=== PATIENT | male | born 1975 | race Caucasian/White ===

== ENCOUNTER → 2021-03-02 11:44 | Outpatient (CLI) | payer MEDICAID, SELFPAY ==
[2021-03-02 12:49] LABS: Erythrocyte Sedimentation Rate 16 mm/hr (0-20)
[2021-03-02 12:52] LABS: Absolute Lymphocyte Count 2.15 X10^3/uL (0.83-4.51); Basophil% 1.1 % (0-1); Eosinophil# 0.07 X10^3/uL; Eosinophils% 0.8 % (0-5); Hematocrit 46.8 % (40-54); Hemoglobin 15.2 g/dL (13.0-16.5); Lymphocyte # 2.15 X10^3/ul (0.83-4.51); Lymphocyte % 24.1 % (19-41); Mean Corp Hgb Conc 32.5 g/dL (32-36); Mean Corpuscular Hgb 30.2 pg (27.0-32.0); Mean Platelet Vol. 12.5 fl (6.2-12.0); Monocyte# 0.58 X10^3/uL; Monocyte% 6.5 % (0-10); NRBC Flagged by Analyzer 0 % (0-5); Neutrophil # 5.98 X10^3/uL (2.7-7.7); Neutrophil % 67.2 % (47-70); Platelet Count 281 K/mm3 (150-450); RBC Distribution Width CV 13.5 % (11.6-14.6); RBC Distribution Width SD 45.9 fl (35.1-43.9); Red Blood Count 5.03 M/mm3 (4.6-6.2); White Blood Count 8.9 K/mm3 (4.4-11.0)
[2021-03-02 13:17] LABS: Hemoglobin A1c 8.1 % (3.8-5.6)
[2021-03-02 13:18] LABS: ALB/GLOB Ratio 0.9 RATIO (0.9-2.4); AST(SGOT) 24 U/L (15-37); Alanine Aminotransfer ALT/SGPT 33 U/L (16-61); Albumin, Serum 3.6 g/dL (3.2-5.0); Alkaline Phosphatase 126 U/L (45-117); Anion Gap 8 (5-15); BUN 13 mg/dL (7-18); CRP < 2.90 mg/L (0.0-3.0); Calcium,Total 8.9 mg/dL (8.5-10.1); Chloride 107 mmol/L (98-107); Creatinine, Serum 0.93 mg/dL (0.70-1.30); EST Glomerular Filtration Rate 93 mL/min (>60); Est Glom Filt Rate - Afr Amer 113 mL/min (>60); Globulin 3.9 g/dL (2.2-4.2); Glucose 205 mg/dL (74-106); LDH 142 U/L (87-241); Potassium 4.4 mmol/L (3.5-5.1); Protein, Total 7.5 g/dL (6.4-8.2); Sodium Level 141 mmol/L (136-145)
[2021-03-03 13:21] LABS: AFP, Tumor Marker 4.9 ng/mL (0.0-8.3); Carbohydrate AG 19-9 15 U/mL (0-35)
== END ==
PROVIDERS: PCP Nurse Practitioner Family; Referring Provider Internal Medicine Gastroenterology; Visit Provider Internal Medicine Gastroenterology
DX: E11.43 Type 2 diabetes mellitus with diabetic autonomic (poly)neuropathy (principal); K31.84 Gastroparesis; K86.1 Other chronic pancreatitis; Z79.4 Long term (current) use of insulin
CPT/HCPCS: 36415; 80053; 82105; 83036; 83615; 85025; 85652; 86140; 86301

== ENCOUNTER 2021-04-12 09:57 | Inpatient (IN) | payer MEDICAID, SELFPAY ==
[2021-04-12] VITALS (7 sets, daily range): BP systolic 97–134; BP diastolic 53–71; PULSE 47–114; RESP 16–22; TEMP 35.7–37.1; O2SAT 96–98; BMI 23.1
--- NOTE | 2021-04-12 10:24 | US_ITS ---
STUDY: ABDOMINAL ULTRASOUND - RIGHT UPPER QUADRANT REASON FOR VISIT: Male, 46 years old . Chronic pancreatitis. TECHNIQUE: Ultrasound evaluation of the right upper quadrant was performed with real-time and static campbell-scale imaging. TECHNICAL QUALITY: Adequate. COMPARISON: None. FINDINGS: Liver: The liver measures 17.6 cm. There is normal echogenicity of the liver. The bile ducts are within normal limits. There is hepatic color flow. The direction of portal flow is hepatopetal. There is no demonstrated mass lesion. Gallbladder: Normal distended gallbladder. The gallbladder wall measures 1.4 mm. There is a negative sonographic West''s sign. There is no pericholecystic fluid. There are no gallstones. Common Bile Duct (C.B.D.): The common bile duct measures 3.4 mm. Pancreas: Normal size of the head, body and tail of the pancreas. There is normal echogenicity of the pancreas. There is no demonstrated pancreatic mass or cyst. Right Kidney: Normal size of the right kidney. The right kidney measures 11.1 cm x 5.3 cm x 4.8 cm. Normal renal cortex. The right cortex measures 1.2 cm. There is no demonstrated renal mass or cyst. There is no right hydronephrosis. US/Abdomen Limited IMPRESSION: Normal right upper quadrant ultrasound examination. Electronically Signed: Luis Cook MD at 11:52 EST , Service support ,
--- NOTE | 2021-04-12 10:28 | EX.ED.DYSGE1 ---
HPI History of Present Illness Chief Complaint: Abd Pain Informant: patient and parent Onset/Context/Timing Onset: Yesterday Current Severity: Moderate Maximum Severity: Severe Narrative Narrative: Patient presents secondary to increased abdominal pain. He is being treated for chronic pancreatitis. He states his pain increased last night after eating meatloaf. No fever or chills. [facility] Medical History Chronic pancreatitis Depression Diabetes mellitus with insulin therapy Gastroparesis GERD (gastroesophageal reflux disease) Nausea and vomiting Neuropathy Pancreatitis Stroke Tobacco abuse Home Medications insulin aspar prt-insulin aspart 100 unit/mL (70-30) subcutaneous soln 1 sliding scale dose SUBCUT USEASDIRECTD 03/02/21 [History Last Taken Unknown] insulin regular human 100 unit/mL injection solution 1 sliding scale dose SUBCUT USEASDIRECTD 03/02/21 [History Last Taken Unknown] Allergy/AdvReac Type Severity Reaction Status Date / Time bee venom protein (honey bee) Allergy Severe Anaphylaxis Verified 04/12/21 09:59 Surgical History History of appendectomy Social History Smoking Status: Current every day smoker tobacco type: cigarettes ROS ROS ED Constitutional Constitutional ED: Denies chills or fever(s) Eyes Eyes: Denies change in vision ENT ENT ED: Denies sore throat Cardiovascular Cardiovascular: Denies chest pain Respiratory/Chest Respiratory/Chest: Denies cough or dyspnea Gastrointestinal Gastrointestinal: Reports abdominal pain, nausea and vomiting; Denies diarrhea Genitourinary Genitourinary ED: Denies dysuria Musculoskeletal Musculoskeletal: Denies back pain Integumentary Denies rash Neurologic Neurologic: Reports weakness; Denies headache(s) Allergic/Immunologic Allergic/Immunologic ED: Denies urticaria EXAM Physical Exam Const Vital Signs: 04/12/21 09:57 04/12/21 13:22 Temperature 96.3 F L Temperature Source Temporal Pulse Rate 47 L 67 Respiratory Rate 16 18 Blood Pressure 129/66 H 97/59 L Blood Pressure Mean 87 71 Pulse Ox 98 Oxygen Delivery Method Room Air Positive well nourished and well developed General Appearance ED: well developed HEENT Reports normocephalic and head/scalp atraumatic Eyes PERRL and EOMs intact bilaterally Neck supple Chest Wall inspection of chest normal and palpation of chest normal Resp normal respiratory effort and clear to auscultation bilaterally Cardio regular rate and regular rhythm GI Palpation: soft and tender other (Moderate diffuse tenderness palpation. No guarding or rebound.) Back/Spine no CVA tenderness Extremity normal to inspection Neuro oriented x3 and no sensory deficits noted Sensorium / Orientation: alert Motor Exam: strength 5/5 throughout Psych mental status grossly normal Skin no rashes or lesions noted MDM MDM MDM Narrative Medical decision making narrative: Patient initially given morphine and Zofran for pain and nausea. Lab work obtained along with right upper quadrant ultrasound. Lab Data Attestation: I reviewed the patient's lab results. Labs: Laboratory Results - last 24 hr 04/12/21 04/12/21 04/12/21 10:13 10:13 10:13 WBC 8.9 RBC 5.12 Hgb 15.5 Hct 48.2 MCV 94.1 H MCH 30.3 MCHC 32.2 RDW Std Deviation 46.0 H RDW Coeff of Elly 13.2 Plt Count 282 MPV 11.5 Immature Gran % (Auto) 0.300 Neut % (Auto) 84.3 H Lymph % (Auto) 12.0 L [place] % (Auto) 2.0 Eos % (Auto) 0.3 Baso % (Auto) 1.1 H Absolute Neuts (auto) 7.5 Absolute Lymphs (auto) 1.07 Nucleated RBC % 0 Sodium 137 Potassium 4.7 Chloride 103 Carbon Dioxide 27.0 Anion Gap 7 BUN 14 Creatinine 0.97 Estim Creat Clear Calc 111.06 Est GFR (MDRD) Af Amer 107 Est GFR (MDRD) Non-Af 89 BUN/Creatinine Ratio 14.4 Glucose 289 H Calcium 9.3 Phosphorus 2.3 L Magnesium 2.2 Total Bilirubin 0.70 Direct Bilirubin 0.13 AST 17 ALT 25 Alkaline Phosphatase 109 Total Protein 7.5 Albumin 3.8 Globulin 3.7 Lipase 41 L Radiography Diagnostic Testing: Clinical Impression(s) from Imaging Studies Abdomen Ultrasound 04/12/21 10:24 IMPRESSION: Normal right upper quadrant ultrasound examination. Electronically Signed: Luis Cook MD at 11:52 EST , Service support , Abdomen/Pelvis CT 04/12/21 13:24 IMPRESSION: The stomach is fluid distended. Findings suggestive of edematous changes with mucosal thickening of the second portion of the duodenum. Pancreatic atrophy. Distended urinary bladder. Electronically Signed: Luis Cook MD at 15:06 EST , Service support , Treatment and Re-Evaluation Comments:: Patient's lab work unremarkable. Right upper quadrant ultrasound reveals no acute abnormality. I spoke with Dr. Villeda, the patient's ophthalmologist. He did asked that we go ahead and obtain a CT scan of the abdomen and pelvis with contrast. This was performed and signed out to oncoming physician for discussion with Dr. Villeda and final disposition. Discharge Plan Dx/Rx/DC Orders Clinical Impression: Abdominal pain, Chronic pancreatitis, Gastric outlet obstruction, Duodenitis Disposition Disposition: Acute Care Hospital [facility] Discharge Date/Time: 04/12/21 17:32
[2021-04-12 10:41] LABS: Absolute Lymphocyte Count 1.07 X10^3/uL (0.83-4.51); Absolute Neutrophil Count 7.5 X10^3/uL (2.0-7.7); Basophil% 1.1 % (0-1); Eosinophil# 0.03 X10^3/uL; Eosinophils% 0.3 % (0-5); Hematocrit 48.2 % (40-54); Hemoglobin 15.5 g/dL (13.0-16.5); Lymphocyte # 1.07 X10^3/ul (0.83-4.51); Mean Corp Hgb Conc 32.2 g/dL (32-36); Mean Corpuscular Hgb 30.3 pg (27.0-32.0); Mean Corpuscular Volume 94.1 fL (80-94); Mean Platelet Vol. 11.5 fl (6.2-12.0); Monocyte# 0.18 X10^3/uL; NRBC Flagged by Analyzer 0 % (0-5); Neutrophil # 7.49 X10^3/uL (2.7-7.7); Neutrophil % 84.3 % (47-70); Platelet Count 282 K/mm3 (150-450); RBC Distribution Width CV 13.2 % (11.6-14.6); Red Blood Count 5.12 M/mm3 (4.6-6.2); White Blood Count 8.9 K/mm3 (4.4-11.0)
[2021-04-12] MEDS: Ondansetron 4 MG/2 ML Vial IV ×3 (10:46→20:00)
[2021-04-12] MEDS: 0.9% Normal Saline 1,000 ML 1000 ML IV (10:46)
[2021-04-12] MEDS: Morphine 4 MG/ML Syringe IV (10:46)
[2021-04-12 10:51] LABS: AST(SGOT) 17 U/L (15-37); Alanine Aminotransfer ALT/SGPT 25 U/L (16-61); Albumin, Serum 3.8 g/dL (3.2-5.0); Alkaline Phosphatase 109 U/L (45-117); Anion Gap 7 (5-15); BUN 14 mg/dL (7-18); BUN/Creat Ratio 14.4 RATIO (10-20); Bilirubin, Direct 0.13 mg/dL (0.00-0.30); Calcium,Total 9.3 mg/dL (8.5-10.1); Chloride 103 mmol/L (98-107); Creatinine, Serum 0.97 mg/dL (0.70-1.30); EST Glomerular Filtration Rate 89 mL/min (>60); Est Glom Filt Rate - Afr Amer 107 mL/min (>60); Estimated Creatinine Clearance 111.06 ml/min; Globulin 3.7 g/dL (2.2-4.2); Glucose 289 mg/dL (74-106); Lipase 41 U/L (73-393); Potassium 4.7 mmol/L (3.5-5.1); Protein, Total 7.5 g/dL (6.4-8.2); Sodium Level 137 mmol/L (136-145)
[2021-04-12] MEDS: 0.9% Normal Saline 1,000 ML 150 ML IV (13:20)
--- NOTE | 2021-04-12 13:24 | CT_ITS ---
STUDY: CT ABDOMEN AND PELVIS WITH CONTRAST REASON FOR EXAM: Male, 46 years old. Abd pain -- IV PO Contrast. History of pancreatitis. RADIATION DOSAGE (If Supplied By Facility): CTDIvol = ( 9.83 ) mGy, DLP = ( 534.36 ) mGycm TECHNIQUE: Transaxial images were obtained from the dome of the diaphragm to the symphysis pubis without oral contrast. IV 100mL Isovue-370 was administered. Sagittal and coronal images were reconstructed. Individualized dose optimization techniques were used for this CT. COMPARISON: None. FINDINGS: Minimal degree of dependent bibasilar atelectasis. Mild coronary artery calcification. Normal liver. Normal gallbladder and extrahepatic biliary system. Normal spleen. There is diffuse atrophy of the pancreas. Normal bilateral adrenal glands. 2 mm calculus in the midportion of the right kidney. Normal left kidney. Fluid distention of the stomach. There is mucosal thickening and narrowing of the second portion of the duodenum. Normal colon. There are surgical clips in the region of the appendix consistent with a prior appendectomy. Normal abdominal aorta. Normal inferior vena cava. Normal retroperitoneum. There is a distended urinary bladder. Normal abdominal wall. Normal osseous structures. CT/Abdomen/Pelvis WITH Contrast IMPRESSION: The stomach is fluid distended. Findings suggestive of edematous changes with mucosal thickening of the second portion of the duodenum. Pancreatic atrophy. Distended urinary bladder. Electronically Signed: Luis Cook MD at 15:06 EST , Service support ,
--- NOTE | 2021-04-12 15:59 | EDS_ITS ---
HPI HPI - GI History of Present Illness Chief Complaint: Abd Pain Detail of Chief Complaint: Abdominal pain and vomiting Narrative Narrative: Care of patient turned over to me awaiting discussion with scientific publications editor Dr. Villeda. I was asked to discuss findings of CT scan and ultrasound as well as lab work with Dr. Villeda. While awaiting discussion with Dr. Villeda patient had a large emesis once again and continues to complain of si gnificant abdominal discomfort. Dr. Villeda felt patient may have a component of gastric outlet obstruction and recommended NG tube placement and admission to medicine for symptom management and likely endoscopy. Dr. Villeda will consult on the case. Patient has history of chronic pancreatitis. Prior similar symptoms: Yes PFSH PFSH Medical History Chronic pancreatitis Depression Diabetes mellitus with insulin therapy Gastroparesis GERD (gastroesophageal reflux disease) Nausea and vomiting Neuropathy Pancreatitis Stroke Tobacco abuse Home Medications insulin aspar prt-insulin aspart 100 unit/mL (70-30) subcutaneous soln 1 sliding scale dose SUBCUT USEASDIRECTD 03/02/21 [History Last Taken Unknown] insulin regular human 100 unit/mL injection solution 1 sliding scale dose SUBCUT USEASDIRECTD 03/02/21 [History Last Taken Unknown] Allergy/AdvReac Type Severity Reaction Status Date / Time bee venom protein (honey bee) Allergy Severe Anaphylaxis Verified 04/12/21 09:59 Surgical History History of appendectomy Social History Smoking Status: Current every day smoker tobacco type: cigarettes EXAM Physical Exam Const Vital Signs: 04/12/21 09:57 04/12/21 13:22 Temperature 96.3 F L Temperature Source Temporal Pulse Rate 47 L 67 Respiratory Rate 16 18 Blood Pressure 129/66 H 97/59 L Blood Pressure Mean 87 71 Pulse Ox 98 Oxygen Delivery Method Room Air Positive well nourished and well developed General Appearance ED: well developed and NAD HEENT Reports TM's clear and moist mucous membranes normocephalic and atraumatic; Negative for trauma or tenderness Tympanic Membrane ED: Yes TM's clear Eyes PERRL and EOMs intact bilaterally General Eye ED: Negative for pale conjunctiva or scleral icterus Neck no lymphadenopathy, supple and no JVD General: Negative for tenderness Chest Wall inspection of chest normal and palpation of chest normal Chest: Negative for tenderness Resp normal respiratory effort and clear to auscultation bilaterally Effort and Inspection: Negative for respiratory distress or pain with movement Auscultation: Negative for rhonchi, wheezes or diminished lung sounds Cardio regular rate, regular rhythm, S1 normal heart sound, S2 normal heart sound and no murmurs Peripheral Pulses: pulses 2+ throughout GI normal to inspection, nondistended, normoactive bowel sounds, soft to palpation, non-tender and non-distended GI Narrative: Patient with tenderness to the epigastric region and upper abdomen with some guarding. There is no rebound or rigidity. Palpation: tender Back/Spine no CVA tenderness and no thoracic nor lumbar tenderness Extremity normal to inspection General Extremety ED: Negative for edema General Extremity: Negative for edema Neuro oriented x3, CN's II-XII intact bilaterally, no sensory deficits noted and gait normal Sensorium / Orientation: awake, alert, oriented to person, oriented to place and oriented to time Motor Exam: strength 5/5 throughout and strength abnormal Psych mental status grossly normal Skin no rashes or lesions noted and no wounds MDM MDM MDM Narrative Medical decision making narrative: After discussion with Dr. Villeda patient will be admitted to medicine Lab Data Labs: Laboratory Results - last 24 hr 04/12/21 04/12/21 10:13 10:13 WBC 8.9 RBC 5.12 Hgb 15.5 Hct 48.2 MCV 94.1 H MCH 30.3 MCHC 32.2 RDW Std Deviation 46.0 H RDW Coeff of Elly 13.2 Plt Count 282 MPV 11.5 Immature Gran % (Auto) 0.300 Neut % (Auto) 84.3 H Lymph % (Auto) 12.0 L [place] % (Auto) 2.0 Eos % (Auto) 0.3 Baso % (Auto) 1.1 H Absolute Neuts (auto) 7.5 Absolute Lymphs (auto) 1.07 Nucleated RBC % 0 Sodium 137 Potassium 4.7 Chloride 103 Carbon Dioxide 27.0 Anion Gap 7 BUN 14 Creatinine 0.97 Estim Creat Clear Calc 111.06 Est GFR (MDRD) Af Amer 107 Est GFR (MDRD) Non-Af 89 BUN/Creatinine Ratio 14.4 Glucose 289 H Calcium 9.3 Total Bilirubin 0.70 Direct Bilirubin 0.13 AST 17 ALT 25 Alkaline Phosphatase 109 Total Protein 7.5 Albumin 3.8 Globulin 3.7 Lipase 41 L Radiography Diagnostic Testing: Clinical Impression(s) from Imaging Studies Abdomen Ultrasound 04/12/21 10:24 IMPRESSION: Normal right upper quadrant ultrasound examination. Electronically Signed: Luis Cook MD at 11:52 EST , Service support , Abdomen/Pelvis CT 04/12/21 13:24 IMPRESSION: The stomach is fluid distended. Findings suggestive of edematous changes with mucosal thickening of the second portion of the duodenum. Pancreatic atrophy. Distended urinary bladder. Electronically Signed: Luis Cook MD at 15:06 EST , Service support , Discharge Plan Triage Chief Complaint: Abd Pain ED Provider: Ericka Orozco Dx/Rx/DC Orders Clinical Impression: Abdominal pain, Chronic pancreatitis, Gastric outlet obstruction, Duodenitis Prescriptions: No Action insulin asp prt-insulin aspart [Novolog Mix 70-30 U-100 Insuln] 100 unit/mL (70-30) solution 1 sliding scale dose subcut USEASDIRECTD RF: 0 Humulin R Regular U-100 Insuln 100 unit/mL solution 1 sliding scale dose subcut USEASDIRECTD RF: 0 Primary Care Provider: Abhishek Nance NP Referrals: Abhishek Nance NP, [employer] [Primary Care Provider] -
--- NOTE | 2021-04-12 16:14 | NURSING ---
MED SURG JT ABD PAIN, VOMITING, GASTRIC OUTLET OBSTRUCTION
--- NOTE | 2021-04-12 16:15 | NURSING ---
DR WATERS IN ER
--- NOTE | 2021-04-12 16:20 | CASEMGMT ---
RN CM to room to meet with patient for initial transition planning/care coordination assessment. RN NATTY introduced self and role at [facility]. Patient voices understanding and consents to assessment at this time. Patient's mother Katie present at bedside. Patient is alert and oriented, sitting up on ER cart in no apparent distress and answers all questions appropriately. Care providers, pharmacy, and demographics verified/updated at this time. PCP: Abhishek Nance DRILLING ASSISTANT Specialists: Friend- GI Preferred Pharmacy: [facility] Insurance: [employer] Prescription Benefit: yes Living Will/HPOA: Patient denies having a living will or HPOA. LNOK: Mother, Katie Cade Living Arrangements: Patient lives alone in one story house with no steps to enter the home. Patient states independent with ADLs. 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 Smoking/ETOH/Drugs: Current smoker (3 cigarettes/day), denies ETOH use, admits to smoking marijuana daily Transportation: Patient drives self and denies transportation concerns. DME/HHC/SNF: Patient denies having any DME in the home and denies need for DME at this time. Denies previous HHC or SNF stays. Patient has no concerns with going home at time of discharge. CM to follow for any discharge planning/needs. Patient voices no concerns/needs at this time. Advised patient to ask for CM if any questions/concerns/needs arise. Voices understanding. Plan: home
--- NOTE | 2021-04-12 17:06 | HP.PCM.HOS_ITS ---
[facility] - General General Date of Admission: 04/12/21 Chief Complaint: Vomiting with sausage and right upper quadrant abdominal pain HPI Narrative KEENAN AYALA, is a 46 M with history of chronic alcoholic pancreatitis came to ER with abdominal pain mainly over the right side and vomiting after eating sausage. This has been ongoing for last 1 month. Patient seen metal or wood blocker Dr. Villeda on 03/02 and at that time he also had 2 to 3 days of nausea, vomiting abdominal pain after eating sausage. Patient used to have alcohol and substance use which he quit about a year ago. Multiple episodes of acute pancreatitis resulted into chronic pancreatitis. He is still smokes pots. Patient states he gets abdominal pain mainly right upper quadrant, colicky in n ature which last for 4 hours after vomiting. He denies hematemesis melena or hematochezia. He usually gets diarrhea. He has history of type 1 diabetes mellitus and gastroparesis. Vitals, heart rate 67, blood pressure 129/66, no tachypnea. Pulse ox 98% on room air. Labs reviewed. Patient had right upper quadrant sonogram reported normal. Abdominal pelvis CT initially reviewed and shows distended stomach with fluid. Edematous changes with mucosal thickening of second portion of duodenum with pancreatic atrophy raising suspicion of gastric outlet obstruction. ER physician talked to metal or wood blocker Dr. Villeda and is getting admitted for further work-up. [facility] Medical History Chronic pancreatitis Depression Diabetes mellitus with insulin therapy Gastroparesis GERD (gastroesophageal reflux disease) Nausea and vomiting Neuropathy Pancreatitis Stroke Tobacco abuse Home Medications insulin aspar prt-insulin aspart 100 unit/mL (70-30) subcutaneous soln 1 sliding scale dose SUBCUT USEASDIRECTD 03/02/21 [History Last Taken Unknown] insulin regular human 100 unit/mL injection solution 1 sliding scale dose SUBCUT USEASDIRECTD 03/02/21 [History Last Taken Unknown] Allergy/AdvReac Type Severity Reaction Status Date / Time bee venom protein (honey bee) Allergy Severe Anaphylaxis Verified 04/12/21 09:59 Surgical History History of appendectomy Social History Smoking Status: Current every day smoker tobacco type: cigarettes ROS ROS Narrative Constitutional: Reports fatigue and weakness, thin looking gentleman HEENT: Reports systems reviewed and no addt'l complaints, except as documented Respiratory/Chest: Denies chest pain, shortness of breath at rest or with exertion Gastrointestinal: As mentioned in HPI Genitourinary: Denies burning urination or new urinary tract symptoms Musculoskeletal: No joint pain and limited range of motion Neurologic: Denies seizure-like activity skin: No ulcer. No rash Endocrinology: Diabetes mellitus, gastroparesis. Reports systems reviewed and no addt'l complaints, except as documented Hematologic/Lymphatic: Reports systems reviewed and no addt'l complaints, except as documented Rest 14 ROS are negative except as mentioned in HPI Vital Signs Vital Signs Vital Signs: 04/12/21 09:57 04/12/21 13:22 04/12/21 16:36 Temperature 96.3 F L 98.2 F Temperature Source Temporal Temporal Pulse Rate 47 L 67 113 H Respiratory Rate 16 18 22 H Blood Pressure 129/66 H 97/59 L 112/53 L Blood Pressure Mean 87 71 72 Pulse Ox 98 98 Oxygen Delivery Method Room Air Room Air 04/12/21 16:38 Temperature Temperature Source Pulse Rate Respiratory Rate Blood Pressure 112/53 L Blood Pressure Mean 72 Pulse Ox Oxygen Delivery Method Weight Weight: 180 lb Body Mass Index (BMI) 23.1 Physical Exam Narrative General: Alert, Oriented x3, Cooperative, BMI 23.1 kg/m? HEENT: Atraumatic, PERRLA, EOMI, Normocephalic Oral: Oral mucosa dry. No Gingival or Mucosal Lesions/ Ulcerations Neck: Supple, No JVD, Negative Carotid Bruits Lungs: Air entry diminished in bilateral lung bases. No crepitation/rhonchi Cardiovascular: Regular rate, Regular Rhythm, Normal S1, Normal S2, No murmurs Abdomen: Bowel Sounds Present, Soft, Non Tender, Non-Distended : No renal angle tenderness. No suprapubic tenderness. Extremities: No edema, Capillary Refill Less than 3 Seconds Skin: No rashes, No breakdown Musculoskeletal: No Tenderness to Palpation of Joints or Extremities Neurological: Cranial nerves II-XII grossly intact, DTR 2+/4 and Symmetrical, Neuro grossly intact Psych/Mental Status: Normal Affect, Appropriate. Results Lab / Micro Data Result Diagrams: 04/12/21 10:13 04/12/21 10:13 Labs: Laboratory Results - last 24 hr 04/12/21 10:13: WBC 8.9, RBC 5.12, Hgb 15.5, Hct 48.2, MCV 94.1 H, MCH 30.3, MCHC 32.2, RDW Std Deviation 46.0 H, RDW Coeff of Elly 13.2, Plt Count 282, MPV 11.5, Immature Gran % (Auto) 0.300, Neut % (Auto) 84.3 H, Lymph % (Auto) 12.0 L, [place] % (Auto) 2.0, Eos % (Auto) 0.3, Baso % (Auto) 1.1 H, Absolute Neuts (auto) 7.5, Absolute Lymphs (auto) 1.07, Nucleated RBC % 0 04/12/21 10:13: Sodium 137, Potassium 4.7, Chloride 103, Carbon Dioxide 27.0, Anion Gap 7, BUN 14, Creatinine 0.97, Estim Creat Clear Calc 111.06, Est GFR (MDRD) Af Amer 107, Est GFR (MDRD) Non-Af 89, BUN/Creatinine Ratio 14.4, Glucose 289 H, Calcium 9.3, Total Bilirubin 0.70, Direct Bilirubin 0.13, AST 17, ALT 25, Alkaline Phosphatase 109, Total Protein 7.5, Albumin 3.8, Globulin 3.7, Lipase 41 L Radiology Impression Abdomen Ultrasound 04/12/21 10:24 IMPRESSION: Normal right upper quadrant ultrasound examination. Electronically Signed: Luis Cook MD at 11:52 EST , Service support , Abdomen/Pelvis CT 04/12/21 13:24 IMPRESSION: The stomach is fluid distended. Findings suggestive of edematous changes with mucosal thickening of the second portion of the duodenum. Pancreatic atrophy. Distended urinary bladder. Electronically Signed: Luis Cook MD at 15:06 EST , Service support , Assessment & Plan Assessment/Plan (1) Gastric outlet obstruction: PLAN: 1. Gastroparesis and gastric outlet obstruction: Gastric outlet progression probably from chronic pancreatitis coupled with gastroparesis. Other possible possibilities are PUD. Patient is being admitted on MedSur floor. GI has been consulted. On clear liquid diet. Patient does not have dysphagia or vomiting with liquid diet or soft diet. He states it is mainly with sausage not even with beef. Further plan of management as per GI recommendation EGD. On Protonix 40 mg IV twice daily. No recent GI bleed. 2. type 1 diabetes mellitus with gastroparesis with hyperglycemia, uncontrolled: Accu-Chek before meals and at bedtime and cover with low sliding scale. Glucose is 289. 3. Hypophosphatemia: Phosphorus is being replaced. Serum magnesium and potassium are normal. 4. Chronic alcoholic pancreatitis with history of alcohol use and substance use in the past. Currently patient is pot/marijuana. He also smokes cigarettes a pack per day since teenage. Advised to quit. DVT prophylaxis, low risk. Charges/Coding Visit Charges Inpatient E&M: 74303 Init Hosp L3
[2021-04-12 17:51] LABS: Magnesium 2.2 mg/dL (1.6-2.6); Phosphorus 2.3 mg/dL (2.5-4.9)
[2021-04-12] MEDS: Lactated Ringers 1,000 ML 75 ML IV (18:15)
[2021-04-12 18:16] LABS: Bedside Glucose 270 mg/dL (70-110)
--- NOTE | 2021-04-12 18:27 | EX.PCM.CON.G ---
HPI Consult Data Date of Consult: 04/12/21 HPI Narrative HPI Narrative: KEENAN AYALA, is a 46 M who presents 46 M who presented to my office today for evaluation of nausea vomiting. He has a 40-year history of type 1 diabetes. He says he only suffers from a mononeuropathy. He denies any nephropathy or retinopathy. He also has a diagnosis of gastroparesis thought to be secondary to diabetes. He does not know what his last hemoglobin A1c. He does not have any frequent urination. At this time he is not having any problems with diarrhea. He was previously diagnosed with with acute pancreatitis. He thinks he has a diagnosis of chronic pancreatitis but he does not now. He was in [place] where he had multiple episodes of pancreatitis. His last episode was in [place]. He did not get admitted at that time. He has been admitted in the past. 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 He has been having recurrent pancreatitis for the last two years as per the patient. This is caused him to lose over 40 pounds. The last time he had symptoms was a couple of weeks ago which included emesis, diarrhea with some blood after 2-3 days of symptoms, nausea, bloating, abdominal pain particularly in the right side, decreased appetite. Symptoms last 4-5 days, sometimes liquid diet will resolve symptoms and sometimes he needs to go to ED for treatment. Initially thought is was alcohol related then diet related. Was previously drinking one alcoholic drink a day but has stopped drinking a year ago. He does use marijuana daily with varying amounts daily and has decreased lately. Gets about eight episodes a year. Type I diabetic. He has had a gastric emptying study due to gastroparesis related to diabetes. Study showed that he has delayed emptying. States he has not been having issues since better management of DM I. Denies history of EGD and colonoscopy. He came into the hospital today with worsening abdominal pain. He was eating normally when he developed acute onset of midepigastric pain. He had multiple episodes of nausea vomiting. In the emergency room he got a CT scan of the abdomen and pelvis and it showed thickening in the duodenum with a lot of food and liquid contents in his stomach. An NG tube was attempted to be placed into his stomach, but he vomited up a lot of the food that was in the stomach. His blood sugar in the ED was 270. PFSH Medical History Chronic pancreatitis Depression Diabetes mellitus with insulin therapy Gastroparesis GERD (gastroesophageal reflux disease) Nausea and vomiting Neuropathy Pancreatitis Stroke Tobacco abuse Home Medications insulin aspar prt-insulin aspart 100 unit/mL (70-30) subcutaneous soln 1 sliding scale dose SUBCUT USEASDIRECTD 03/02/21 [History Last Taken Unknown] insulin regular human 100 unit/mL injection solution 1 sliding scale dose SUBCUT USEASDIRECTD 03/02/21 [History Last Taken Unknown] Allergy/AdvReac Type Severity Reaction Status Date / Time bee venom protein (honey bee) Allergy Severe Anaphylaxis Verified 04/12/21 09:59 Surgical History History of appendectomy Social History Smoking Status: Current every day smoker tobacco type: cigarettes ROS Review of Systems ROS Unobtainable: other Constitutional Constitutional: Denies fatigue, fever(s), poor appetite, weight gain or weight loss ENT HEENT: Denies mouth lesions Cardiovascular Cardiovascular: Denies abdominal bloating, abdominal edema or abdominal pain Respiratory/Chest Respiratory/Chest: Denies change in mental status, change in phlegm color, chest congestion or chest tightness Gastrointestinal Gastrointestinal: Denies belching, bloating, change in bowel habits, change in stool character, chewing difficulty, coffee ground emesis, constipation, cramping, diarrhea, dyspepsia, dysphagia, early satiety, excessive flatus, fecal incontinence, heartburn, hematemesis, hematochezia, hemorrhoids, loose stools, melena, nausea, odynophagia, rectal bleeding, tenesmus, vomiting or weight changes Genitourinary Genitourinary: Denies abdominal discomfort, burning urination or itching Musculoskeletal Musculoskeletal: Reports as per HPI; Denies muscle weakness or myalgias Integumentary Integumentary: Denies jaundice Neurologic Neurologic: Denies lack of coordination or weakness Psychiatric Psychiatric: Denies confusion, depression, memory loss, mood swings, paranoia or suicidal ideation Endocrine Endocrinology: Denies systems reviewed and no addt'l complaints, except as documented Hematologic/Lymphatic Hematologic/Lymphatic: Denies anemia, easy bleeding, easy bruising or lymphadenopathy Allergic/Immunologic Allergic/Immunologic: Denies systems reviewed and no addt'l complaints, except as documented Physical Exam Const alert General Appearance: cooperative Orientation / Consciousness: oriented to person HEENT hearing grossly normal bilaterally Head and Scalp: normal to inspection Face and Sinus: face symmetric Nose: external nose normal Mouth: oral and palatal mucosa normal Eyes conjunctivae normal General Eye: normal appearance of both eyes Neck full ROM General: normal visual inspection Lymph Lymphatic: no lymphadenopathy noted Chest inspection of chest normal and palpation of chest normal Chest: symmetrical chest wall rise Resp normal respiratory effort Effort and Inspection: able to speak in complete sentences Cardio regular rate GI non-distended Percussion: normal to percussion Rectal Exam: deferred Neuro Speech: speech normal Gait (Neuro): normal gait Lab / Micro Data Result Diagrams: 04/12/21 10:13 04/12/21 10:13 Labs: Laboratory Results - last 24 hr 04/12/21 10:13: WBC 8.9, RBC 5.12, Hgb 15.5, Hct 48.2, MCV 94.1 H, MCH 30.3, MCHC 32.2, RDW Std Deviation 46.0 H, RDW Coeff of Elly 13.2, Plt Count 282, MPV 11.5, Immature Gran % (Auto) 0.300, Neut % (Auto) 84.3 H, Lymph % (Auto) 12.0 L, [place] % (Auto) 2.0, Eos % (Auto) 0.3, Baso % (Auto) 1.1 H, Absolute Neuts (auto) 7.5, Absolute Lymphs (auto) 1.07, Nucleated RBC % 0 04/12/21 10:13: Sodium 137, Potassium 4.7, Chloride 103, Carbon Dioxide 27.0, Anion Gap 7, BUN 14, Creatinine 0.97, Estim Creat Clear Calc 111.06, Est GFR (MDRD) Af Amer 107, Est GFR (MDRD) Non-Af 89, BUN/Creatinine Ratio 14.4, Glucose 289 H, Calcium 9.3, Total Bilirubin 0.70, Direct Bilirubin 0.13, AST 17, ALT 25, Alkaline Phosphatase 109, Total Protein 7.5, Albumin 3.8, Globulin 3.7, Lipase 41 L 04/12/21 10:13: Phosphorus 2.3 L, Magnesium 2.2 04/12/21 17:47: POC Glucose 270 H Radiology Impression Abdomen Ultrasound 04/12/21 10:24 IMPRESSION: Normal right upper quadrant ultrasound examination. Electronically Signed: Luis Cook MD at 11:52 EST , Service support , Abdomen/Pelvis CT 04/12/21 13:24 IMPRESSION: The stomach is fluid distended. Findings suggestive of edematous changes with mucosal thickening of the second portion of the duodenum. Pancreatic atrophy. Distended urinary bladder. Electronically Signed: Luis Cook MD at 15:06 EST , Service support , Assessment & Plan Assessment/Plan (1) Gastric outlet obstruction: PLAN: Gastric outlet obstruction possibly secondary to duodenitis. The differential diagnosis would include pyloric stenosis, stricture of the first portion of the duodenum secondary to H. pylori or chronic stasis. He will undergo an upper endoscopy to evaluate his upper GI tract. He was explained alternatives, risk, benefits including outstanding bleeding, infection, sepsis, perforation, need for emergent and . He will have an ASA of 1. (2) Chronic pancreatitis: PLAN: It is not known if he truly has a history of chronic pancreatitis or acute recurrent pancreatitis. His CT scan did not show any signs of calcification in the pancreas. He will need an MRI and possible endoscopic ultrasound. (3) Duodenitis: PLAN: For his duodenitis we will put him on a PPI drip, azithromycin and Reglan therapy. Hopefully he will not have any contents in his GI tract tomorrow morning we perform upper endoscopy Charges/Coding Visit Charges Inpatient E&M: 64745 Init Hosp L3
[2021-04-12] MEDS: Insulin Lispro 100 UNIT/ML INSULN.PEN SC (20:10)
[2021-04-12] MEDS: Na Biphos/Potassium Phosphate PACKET 1 PACKET PO (21:22)
[2021-04-12 21:55] LABS: Bedside Glucose 374 mg/dL (70-110)
[2021-04-13] MEDS: Mag Hydrox/Al Hydrox/Simeth 30 ML UDC PO (00:02)
[2021-04-13 00:17] LABS: Troponin-I HS 6 pg/mL (3.0-78.0)
--- NOTE | 2021-04-13 01:32 | EKG12_ITS ---
Test Reason : CP Blood Pressure : / mmHG Vent. Rate : 110 BPM Atrial Rate : 110 BPM P-R Int : 146 ms QRS Dur : 110 ms QT Int : 332 ms P-R-T Axes : 085 108 062 degrees QTc Int : 449 ms Sinus tachycardia Otherwise normal ECG Confirmed by DIMITRY FLORES, NENO ([id number]), pictures editor LUKE VALLADARES ([id number]) on 04/15/2021 9:19:27 AM Referred By: PC Confirmed By:NENO MORAES MD
[2021-04-13 02:19] LABS: Absolute Lymphocyte Count 0.89 X10^3/uL (0.83-4.51); Absolute Neutrophil Count 15.8 X10^3/uL (2.0-7.7); Basophil# 0.05 X10^3/uL; Basophil% 0.3 % (0-1); Hematocrit 42.8 % (40-54); Hemoglobin 13.9 g/dL (13.0-16.5); Lymphocyte # 0.89 X10^3/ul (0.83-4.51); Mean Corp Hgb Conc 32.5 g/dL (32-36); Mean Corpuscular Hgb 30.4 pg (27.0-32.0); Mean Corpuscular Volume 93.7 fL (80-94); Mean Platelet Vol. 11.1 fl (6.2-12.0); Monocyte# 1.05 X10^3/uL; Monocyte% 5.9 % (0-10); NRBC Flagged by Analyzer 0 % (0-5); Neutrophil # 15.79 X10^3/uL (2.7-7.7); Neutrophil % 88.1 % (47-70); Platelet Count 277 K/mm3 (150-450); RBC Distribution Width CV 13.6 % (11.6-14.6); RBC Distribution Width SD 46.7 fl (35.1-43.9); Red Blood Count 4.57 M/mm3 (4.6-6.2); White Blood Count 17.9 K/mm3 (4.4-11.0)
[2021-04-13 03:07] LABS: Troponin-I HS 9 pg/mL (3.0-78.0)
[2021-04-13 03:09] LABS: ALB/GLOB Ratio 1.1 RATIO (0.9-2.4); AST(SGOT) 9 U/L (15-37); Alanine Aminotransfer ALT/SGPT 21 U/L (16-61); Albumin, Serum 3.5 g/dL (3.2-5.0); Alkaline Phosphatase 104 U/L (45-117); Anion Gap 16 (5-15); BUN 25 mg/dL (7-18); BUN/Creat Ratio 21.4 RATIO (10-20); Calcium,Total 8.9 mg/dL (8.5-10.1); Chloride 102 mmol/L (98-107); Creatinine, Serum 1.17 mg/dL (0.70-1.30); EST Glomerular Filtration Rate 72 mL/min (>60); Est Glom Filt Rate - Afr Amer 87 mL/min (>60); Estimated Creatinine Clearance 92.08 ml/min; Globulin 3.3 g/dL (2.2-4.2); Glucose 430 mg/dL (74-106); Protein, Total 6.8 g/dL (6.4-8.2); Sodium Level 136 mmol/L (136-145)
[2021-04-13] MEDS: Insulin Lispro 100 UNIT/ML INSULN.PEN SC ×2 (05:54→12:22)
[2021-04-13 05:59] VITALS: BP 124/71; PULSE 95; RESP 18; TEMP 36.9; O2SAT 96
[2021-04-13 06:00] LABS: Bedside Glucose 420 mg/dL (70-110)
[2021-04-13 07:02] LABS: Troponin-I HS 13 pg/mL (3.0-78.0)
[2021-04-13 07:35] VITALS: O2SAT 93
[2021-04-13 08:59] VITALS: BP 113/52; PULSE 104; RESP 16; TEMP 36.8; O2SAT 97
[2021-04-13 09:25] LABS: Bedside Glucose 471 mg/dL (70-110)
--- NOTE | 2021-04-13 09:25 | NURSING ---
Addendum entered by Deborah Riojas 04/13/21 09:35: DR DOWNING CALLED W/NEW ORDERS, SEE MAR Original Note: PT C/O CP AND SOB. VSS, HR 105 AND REGULAR. POX 95% ON RA. BLOOD SUGAR 471. TEXT SENT TO DR DOWNING. LAB BACK UP ORDERED
[2021-04-13 09:49] LABS: Hemoglobin A1c 6.8 % (3.8-5.6)
--- NOTE | 2021-04-13 09:59 | NURSING ---
THIS NURSE CALLED INPATIENT PHARMACY AT 0945 REQUESTING INSULINS TO BE VERIFIED
[2021-04-13] MEDS: Insulin NPH Human 100 UNITS/ML PEN 15 UNITS SC (10:22)
[2021-04-13] MEDS: Insulin Lispro 100 UNIT/ML INSULN.PEN 10 UNIT SC (10:23)
[2021-04-13 10:30] LABS: Bedside Glucose 490 mg/dL (70-110)
[2021-04-13 10:49] LABS: Glucose 516 mg/dL (74-106)
[2021-04-13] MEDS: 0.9% Normal Saline 1,000 ML 150 ML IV (11:01)
[2021-04-13 11:21] LABS: Bedside Glucose 499 mg/dL (70-110)
[2021-04-13 11:40] VITALS: BP 105/62; PULSE 87; RESP 16; TEMP 36.5; O2SAT 99
[2021-04-13 11:57] LABS: Bacteria 0 SEEN /hpf (None Seen); Mucous, Urine 0 SEEN /hpf (<or=2+); Red Blood Cells-Urine 0 SEEN /hpf (0-5); Squamous Epithelial Cells - UA 0 SEEN /hpf (0-5); White Blood Cells 0 SEEN /hpf (0-5)
[2021-04-13 12:04] LABS: Color, Urine Yellow (Yellow); Glucose, Dipstick 1000 mg/dl (Normal); Leukocyte Esterase-Dipstick Negative /ul (Negative); Nitrite-Dipstick Negative (Negative); Occult Blood-Urine Negative /ul (Negative); Protein-Dipstick Negative (Negative); Urine Bilirubin Dipstick Negative (Negative); Urine Clarity Clear (Clear); Urine Urobilinogen Normal (Normal)
[2021-04-13 12:11] LABS: Ketone-Dipstick 150 mg/dl (Negative)
[2021-04-13 12:30] LABS: Bedside Glucose 364 mg/dL (70-110)
--- NOTE | 2021-04-13 12:34 | PCM.PN.HOSP ---
Subjective Subjective Hurts all over in his chest and abdomen. Has not having abdominal cramps. Feels similar to when he develops DKA. Has been evaluated for pancreatitis in [place] as well as [place]. Stated that he was seen at the [facility]. Objective Data Objective Data Vital Signs: Vital Signs Temp Pulse Resp BP Pulse Ox 36.5 C L 87 16 105/62 99 04/13/21 11:40 04/13/21 11:40 04/13/21 11:40 04/13/21 11:40 04/13/21 11:40 Oxygen Delivery Method Room Air Weight: 74.2 kg Body Mass Index (BMI) 23.1 Intake & Output: Intake and Output for Last 24 Hours 04/11/21 04/12/21 04/13/21 23:59 23:59 23:59 Intake Total 2259.33 / 2259.33 1090 / 1090 Balance 2259.33 / 2259.33 1090 / 1090 Medical Nutrition Assessment Dietitian: Malnutrition Criteria Met Start: 04/13/21 10:54 Freq: Status: Active Protocol: Document 04/13/21 10:54 AG (Rec: 04/13/21 10:54 AG [id number]) Nutrition Malnutrition Evidence of Malnutrition Exists Yes Malnutrition (severe): Acute Illness/Injury Evidenced By Suboptimal Energy Intake ( Severe),Weight Loss (Severe) Clinical Problem Acute Disease or Injury Related Malnutrition Etiology severe, acute malnutrition r/t GI dysfunction Signs/Symptoms as evidenced by unintentional wt loss of 16.4#/9% x 2 months , estimated PO intake meeting <75% of estimated energy needs x 2 months d/t nausea, emesis , abd pain, and diarrhea Status Active Problem Recommendation Dietitian Recommendations/Changes recommend advance diet as tolerated to CHO controlled, fat restricted; ensure clear 120mL 4x/day w/ medpass when PO diet is advanced. Lab / Micro Data Result Diagrams: 04/13/21 02:13 04/13/21 10:15 Labs: Laboratory Results - last 24 hr 04/12/21 10:13: Phosphorus 2.3 L, Magnesium 2.2 04/12/21 17:47: POC Glucose 270 H 04/12/21 20:06: POC Glucose 374 H 04/12/21 23:50: Troponin I High Sens 6 04/13/21 02:13: WBC 17.9 H, RBC 4.57 L, Hgb 13.9, Hct 42.8, MCV 93.7, MCH 30.4, MCHC 32.5, RDW Std Deviation 46.7 H, RDW Coeff of Elly 13.6, Plt Count 277, MPV 11.1, Immature Gran % (Auto) 0.700, Neut % (Auto) 88.1 H, Lymph % (Auto) 5.0 L, [place] % (Auto) 5.9, Eos % (Auto) 0.0, Baso % (Auto) 0.3, Absolute Neuts (auto) 15.8 H, Absolute Lymphs (auto) 0.89, Nucleated RBC % 0 04/13/21 02:13: Sodium 136, Potassium 5.0, Chloride 102, Carbon Dioxide 18.0 L, Anion Gap 16 H, BUN 25 H, Creatinine 1.17, Estim Creat Clear Calc 92.08, Est GFR (MDRD) Af Amer 87, Est GFR (MDRD) Non-Af 72, BUN/Creatinine Ratio 21.4 H, Glucose 430 H, Calcium 8.9, Total Bilirubin 0.80, AST 9 L, ALT 21, Alkaline Phosphatase 104, Total Protein 6.8, Albumin 3.5, Globulin 3.3, Albumin/Globulin Ratio 1.1 04/13/21 02:13: Troponin I High Sens 9 04/13/21 02:13: Hemoglobin A1c 6.8 H 04/13/21 05:52: POC Glucose 420 H 04/13/21 06:23: Troponin I High Sens 13 04/13/21 09:19: POC Glucose 471 H* 04/13/21 10:15: Glucose 516 H* 04/13/21 10:21: POC Glucose 490 H* 04/13/21 11:11: POC Glucose 499 H* 04/13/21 11:45: Urine Color Yellow, Urine Clarity Clear, Urine pH 5.0, Ur Specific [place] 1.020, Urine Protein Negative, Urine Glucose (UA) 1000 H, Urine Ketones 150 A*, Urine Occult Blood Negative, Urine Nitrite Negative, Urine Bilirubin Negative, Urine Urobilinogen Normal, Ur Leukocyte Esterase Negative, Urine RBC 0 SEEN, Urine WBC 0 SEEN, Ur Squamous Epith Cells 0 SEEN, Urine Bacteria 0 SEEN, Urine Mucus 0 SEEN 04/13/21 12:21: POC Glucose 364 H Micro: Microbiology 04/13/21 07:30 Nasal Secretion SARS-CoV-2 Antigen (Rapid) - Final Radiography Diagnostic Testing: Radiology Impression Abdomen/Pelvis CT 04/12/21 13:24 IMPRESSION: The stomach is fluid distended. Findings suggestive of edematous changes with mucosal thickening of the second portion of the duodenum. Pancreatic atrophy. Distended urinary bladder. Electronically Signed: Luis Cook MD at 15:06 EST , Service support , Physical Exam Const alert HEENT head/scalp atraumatic Head and Scalp: normocephalic Eyes Eyes Narrative: no icterus Resp normal respiratory effort, no retractions, no use of accessory muscles and clear to auscultation bilaterally Cardio regular rate, regular rhythm, S1 normal heart sound and S2 normal heart sound GI normal to inspection, nondistended, normoactive bowel sounds, soft to palpation and non-distended GI Narrative: pain out of proportion to exam. Extremity normal to inspection Psych Mood & Affect: anxious Assessment & Plan Assessment/Plan (1) Abdominal pain: QUALIFIERS: Abdominal location: generalized Qualified Code(s): R10.84 - Generalized abdominal pain (2) Gastric outlet obstruction: (3) Duodenitis: (4) Chest pain: QUALIFIERS: Chest pain type: unspecified Qualified Code(s): R07.9 - Chest pain, unspecified (5) Diabetes mellitus with insulin therapy: PLAN: 1. gastric outlet obstruction probably 2/2 duodenitis EGD today on pantoprazole gtt 2. DKA +AG and ketones in urine DM1 NPO. insulin gtt 3. Chest pain atypical trops negative 4. chronic pancreatitis no evidence of pancreatitis on CT, though atrophy noted check records from [facility] [place] where he has been evaluated before 5. VTE proph: LMWH Charges/Coding Visit Charges Inpatient E&M: 35700 Subs Hosp L3
--- NOTE | 2021-04-13 12:48 | NURSING ---
URINE KETONES 150, ACETONE LEVEL STILL PENDING, DR DOWNING AWARE, TRANSFERRING PT TO ICU
[2021-04-13 13:02] LABS: Magnesium 2.9 mg/dL (1.6-2.6)
--- NOTE | 2021-04-13 14:30 | NURSING ---
Pt verbalizing wishes to leave AMA. Pt encouraged to stay as he is awaiting transfer to ICU for DKA, discussed risks of leaving and encouraged to stay, but pt persistent on leaving. Pt states, I've been diabetic since I was 14, I've been in DKA many times and managed myself. Dr. Santamaria notified of pt's wishes to leave AMA. Dr. Santamaria at bedside to discuss with pt. Pt signs AMA form, copy placed on chart. Pt's mother at bedside, willing to take pt home.
--- NOTE | 2021-04-13 14:37 | PCM.DC ---
Discharge Instructions Diet Discharge Diet: 2000 Calorie Control Diet Dressing / Incision Call your doctor if you observe: - (uncontrolled blood sugar. worsening abdominal pain. intractable nausea and vomiting. ) Follow Up Care Test Results: Test results from this visit will be discussed in further detail at your follow-up appointment, if applicable. Discharge Plan Admission Admit Date/Time: 04/12/21 16:09 Primary Reason for Your Visit: gastric outlet obstruction. Attending Provider: Chandan Santamaria Primary Care Provider: Abhishek Nance NP Discharge Orders/Prescriptions Prescriptions: New omeprazole 20 mg capsule,delayed release(DR/EC) 20 mg PO BID Qty: 60 RF: 0 Continued insulin asp prt-insulin aspart [Novolog Mix 70-30 U-100 Insuln] 100 unit/mL (70-30) solution 25 unit subcut BID RF: 0 Humulin R Regular U-100 Insuln 100 unit/mL solution 1 sliding scale dose subcut USEASDIRECTD RF: 0 Referrals / Follow Up: Segundo Villeda DO [STAFF PHYSICIAN] - Within 2 Weeks Abhishek Nance NP, [facility] [facility] [Primary Care Provider] - Within 2 Weeks Disposition Disposition (needs filled in before D/C Order can be placed): Against Medical Advice
--- NOTE | 2021-04-13 14:41 | PCM.DC.SUM ---
Providers Date of Admission: 04/12/21 Primary Care Physician: BERLIN Lyon Consultations 04/12/21 17:50 Consult: Gastroenterology Routine Consulting Provider: Narciso Gastroenterology Reason for Consult: Gastric outlet obstruciton, chr pancreatitis EMERGENT Consult: No MD Notified: Yes Date Notified: 04/12/21 Time Notified: 17:04 Method of Notification: Text Reason For Visit: CHRONIC PANCREATITIS, GASTROPARESIS Diagnosis Discharge Diagnosis (1) Abdominal pain: Status: Acute Code(s): R10.9 - Unspecified abdominal pain Qualifiers: Abdominal location: generalized Qualified Code(s): R10.84 - Generalized abdominal pain (2) Gastric outlet obstruction: Status: Acute Code(s): K31.1 - Adult hypertrophic pyloric stenosis (3) Duodenitis: Status: Acute Code(s): K29.80 - Duodenitis without bleeding (4) Chest pain: Status: Acute Code(s): R07.9 - Chest pain, unspecified Qualifiers: Chest pain type: unspecified Qualified Code(s): R07.9 - Chest pain, unspecified (5) Diabetes mellitus with insulin therapy: Status: Acute Code(s): E11.9 - Type 2 diabetes mellitus without complications; Z79.4 - detention (current) use of insulin (6) DKA (diabetic ketoacidoses): Status: Acute Code(s): E11.10 - Type 2 diabetes mellitus with ketoacidosis without coma Medications at Discharge Home Medications insulin aspar prt-insulin aspart 100 unit/mL (70-30) subcutaneous soln 25 unit SUBCUT BID 03/02/21 insulin regular human 100 unit/mL injection solution 1 sliding scale dose SUBCUT USEASDIRECTD 03/02/21 omeprazole 20 mg PO BID #60 cap 04/13/21 Hospital Course Summary of Care Provided Minutes Spent on Discharge: 35 Hospital Course: 46-year-old male presents from [employer] office with abdominal pain and weight loss. Patient concerning for gastric outlet obstruction and duodenitis and patient was seen by GI. Plan is for endoscopy. Patient is type I diabetic and then started complaining of chest and worsening abdominal pain which she stated felt like when he would be in DKA. Patient had positive ketones on urinalysis as well as positive anion gap concerning of which for diabetic ketoacidosis and the plan was for the patient be transferred to the ICU to initiate insulin drip protocols. Patient blood sugars have improved and 300 and patient is overall feeling better of note, patient's mother is present in his room. Patient is upset because he did not get his insulin last night and has not had his endoscopy yet. 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 Explained the risks of worsening DKA fever to go home now or potential cephalopathy and worsening abdominal pain as his work-up is incomplete at this time. He reports understanding and accepts the risks. Patient's mother was at bedside as well as the patient's bedside nurse. Patient is recommended to continue with PPI therapy twice daily as he was receiving in the hospital for this duodenitis. Medical Records Data Medical Nutrition Assessment Dietitian: Malnutrition Criteria Met Start: 04/13/21 10:54 Freq: Status: Active Protocol: Document 04/13/21 10:54 (Rec: 04/13/21 10:54 [id number]) Nutrition Malnutrition Evidence of Malnutrition Exists Yes Malnutrition (severe): Acute Illness/Injury Evidenced By Suboptimal Energy Intake ( Severe),Weight Loss (Severe) Clinical Problem Acute Disease or Injury Related Malnutrition Etiology severe, acute malnutrition r/t GI dysfunction Signs/Symptoms as evidenced by unintentional wt loss of 16.4#/9% x 2 months , estimated PO intake meeting <75% of estimated energy needs x 2 months d/t nausea, emesis , abd pain, and diarrhea Status Active Problem Recommendation Dietitian Recommendations/Changes recommend advance diet as tolerated to CHO controlled, fat restricted; ensure clear 120mL 4x/day w/ medpass when PO diet is advanced. Weight / BMI Weight Weight: 74.2 kg Body Mass Index (BMI) 23.1 ABG / Lab / Microbiology Data Result Diagrams: 04/13/21 02:13 04/13/21 10:15 Laboratory: Laboratory Results - last 24 hr 04/12/21 10:13: Phosphorus 2.3 L, Magnesium 2.2 04/12/21 17:47: POC Glucose 270 H 04/12/21 20:06: POC Glucose 374 H 04/12/21 23:50: Troponin I High Sens 6 04/13/21 02:13: WBC 17.9 H, RBC 4.57 L, Hgb 13.9, Hct 42.8, MCV 93.7, MCH 30.4, MCHC 32.5, RDW Std Deviation 46.7 H, RDW Coeff of Elly 13.6, Plt Count 277, MPV 11.1, Immature Gran % (Auto) 0.700, Neut % (Auto) 88.1 H, Lymph % (Auto) 5.0 L, [place] % (Auto) 5.9, Eos % (Auto) 0.0, Baso % (Auto) 0.3, Absolute Neuts (auto) 15.8 H, Absolute Lymphs (auto) 0.89, Nucleated RBC % 0 04/13/21 02:13: Sodium 136, Potassium 5.0, Chloride 102, Carbon Dioxide 18.0 L, Anion Gap 16 H, BUN 25 H, Creatinine 1.17, Estim Creat Clear Calc 92.08, Est GFR (MDRD) Af Amer 87, Est GFR (MDRD) Non-Af 72, BUN/Creatinine Ratio 21.4 H, Glucose 430 H, Calcium 8.9, Total Bilirubin 0.80, AST 9 L, ALT 21, Alkaline Phosphatase 104, Total Protein 6.8, Albumin 3.5, Globulin 3.3, Albumin/Globulin Ratio 1.1 04/13/21 02:13: Troponin I High Sens 9 04/13/21 02:13: Hemoglobin A1c 6.8 H 04/13/21 05:52: POC Glucose 420 H 04/13/21 06:23: Troponin I High Sens 13 04/13/21 09:19: POC Glucose 471 H* 04/13/21 10:15: Glucose 516 H* 04/13/21 10:15: Magnesium 2.9 H 04/13/21 10:21: POC Glucose 490 H* 04/13/21 11:08: Acetone Level MODERATE H 04/13/21 11:11: POC Glucose 499 H* 04/13/21 11:45: Urine Color Yellow, Urine Clarity Clear, Urine pH 5.0, Ur Specific [place] 1.020, Urine Protein Negative, Urine Glucose (UA) 1000 H, Urine Ketones 150 A*, Urine Occult Blood Negative, Urine Nitrite Negative, Urine Bilirubin Negative, Urine Urobilinogen Normal, Ur Leukocyte Esterase Negative, Urine RBC 0 SEEN, Urine WBC 0 SEEN, Ur Squamous Epith Cells 0 SEEN, Urine Bacteria 0 SEEN, Urine Mucus 0 SEEN 04/13/21 12:21: POC Glucose 364 H Microbiology: Microbiology 04/13/21 07:30 Nasal Secretion SARS-CoV-2 Antigen (Rapid) - Final Radiography Diagnostic Testing: Radiology Impression Abdomen/Pelvis CT 04/12/21 13:24 IMPRESSION: The stomach is fluid distended. Findings suggestive of edematous changes with mucosal thickening of the second portion of the duodenum. Pancreatic atrophy. Distended urinary bladder. Electronically Signed: Luis Cook MD at 15:06 EST , Service support , D/C Instructions Discharge Diet: 2000 Calorie Control Diet Call your doctor if you observe: - (uncontrolled blood sugar. worsening abdominal pain. intractable nausea and vomiting. ) Meaningful Use Info Meaningful Use Diagnoses (Choose all that apply): None applicable Discharge Plan Admission Admit Date/Time: 04/12/21 16:09 Primary Reason for Your Visit: gastric outlet obstruction. Attending Provider: Chandan Santamaria Primary Care Provider: Abhishek Nance NP Discharge Orders/Prescriptions Prescriptions: New omeprazole 20 mg capsule,delayed release(DR/EC) 20 mg PO BID Qty: 60 RF: 0 Continued insulin asp prt-insulin aspart [Novolog Mix 70-30 U-100 Insuln] 100 unit/mL (70-30) solution 25 unit subcut BID RF: 0 Humulin R Regular U-100 Insuln 100 unit/mL solution 1 sliding scale dose subcut USEASDIRECTD RF: 0 Referrals / Follow Up: Segundo Villeda DO [STAFF PHYSICIAN] - Within 2 Weeks Abhishek Nance NP, FA[employer] CHECKER-C [Primary Care Provider] - Within 2 Weeks Disposition Disposition (needs filled in before D/C Order can be placed): Against Medical Advice Charges/Coding Visit Charges Inpatient E&M: 52908 Disch Hosp
== END 2021-04-13 14:49 | disposition left against medical advice (07) | DRG 254 ==
LOC: ED 10:48 → MS2 16:52
PROVIDERS: Anesthesiology; Hospitalist; Admitting Provider Internal Medicine; Emergency Provider Emergency Medicine; PCP Nurse Practitioner Family
DX: K31.1 Adult hypertrophic pyloric stenosis (principal); E10.10 Type 1 diabetes mellitus with ketoacidosis without coma; E10.41 Type 1 diabetes mellitus with diabetic mononeuropathy; E83.39 Other disorders of phosphorus metabolism; K31.84 Gastroparesis; Z79.4 Long term (current) use of insulin; E10.43 Type 1 diabetes mellitus with diabetic autonomic (poly)neuropathy; K86.1 Other chronic pancreatitis; F12.90 Cannabis use, unspecified, uncomplicated; F17.210 Nicotine dependence, cigarettes, uncomplicated; K29.80 Duodenitis without bleeding; K21.9 Gastro-esophageal reflux disease without esophagitis
CPT/HCPCS: 36415; 74177; 76705; 80048; 80053; 80076; 81001; 82009; 82947; 82962; 83036; 83690; 83735; 84100; 84484; 85025; 87426; 93005; 97802; 99285; J7030; J7040; J7120; Q9967; A4216; J2405

== ENCOUNTER 2021-06-29 05:24 | Day surgery (SDC) | payer MEDICAID, SELFPAY ==
--- NOTE | 2021-06-28 07:45 | PCM.HP.BLA ---
History and Physical Date of Admission: 06/29/21 HPI Consult Data Date of Consult: 04/12/21 [facility] Narrative [facility] Narrative: KEENAN AYALA, is a 46 M who presents 46 M who presented to my office today for evaluation of nausea vomiting. He has a 40-year history of type 1 diabetes. He says he only suffers from a mononeuropathy. He denies any nephropathy or retinopathy. He also has a diagnosis of gastroparesis thought to be secondary to diabetes. He does not know what his last hemoglobin A1c. He does not have any frequent urination. At this time he is not having any problems with diarrhea. He was previously diagnosed with with acute pancreatitis. He thinks he has a diagnosis of chronic pancreatitis but he does not now. He was in [place] where he had multiple episodes of pancreatitis. His last episode was in [place]. He did not get admitted at that time. He has been admitted in the past. 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 He has been having recurrent pancreatitis for the last two years as per the patient. This is caused him to lose over 40 pounds. The last time he had symptoms was a couple of weeks ago which included emesis, diarrhea with some blood after 2-3 days of symptoms, nausea, bloating, abdominal pain particularly in the right side, decreased appetite. Symptoms last 4-5 days, sometimes liquid diet will resolve symptoms and sometimes he needs to go to ED for treatment. Initially thought is was alcohol related then diet related. Was previously drinking one alcoholic drink a day but has stopped drinking a year ago. He does use marijuana daily with varying amounts daily and has decreased lately. Gets about eight episodes a year. Type I diabetic. He has had a gastric emptying study due to gastroparesis related to diabetes. Study showed that he has delayed emptying. States he has not been having issues since better management of DM I. Denies history of EGD and colonoscopy. He came into the hospital today with worsening abdominal pain. He was eating normally when he developed acute onset of midepigastric pain. He had multiple episodes of nausea vomiting. In the emergency room he got a CT scan of the abdomen and pelvis and it showed thickening in the duodenum with a lot of food and liquid contents in his stomach. An NG tube was attempted to be placed into his stomach, but he vomited up a lot of the food that was in the stomach. His blood sugar in the ED was 270. [facility] Medical History Chronic pancreatitis Depression Diabetes mellitus with insulin therapy Gastroparesis GERD (gastroesophageal reflux disease) Nausea and vomiting Neuropathy Pancreatitis Stroke Tobacco abuse Home Medications insulin aspar prt-insulin aspart 100 unit/mL (70-30) subcutaneous soln 1 sliding scale dose SUBCUT USEASDIRECTD 03/02/21 [History Last Taken Unknown] insulin regular human 100 unit/mL injection solution 1 sliding scale dose SUBCUT USEASDIRECTD 03/02/21 [History Last Taken Unknown] Allergy/AdvReac Type Severity Reaction Status Date / Time bee venom protein (honey bee) Allergy Severe Anaphylaxis Verified 04/12/21 09:59 Surgical History History of appendectomy Social History Smoking Status: Current every day smoker tobacco type: cigarettes ROS Review of Systems ROS Unobtainable: other Constitutional Constitutional: Denies fatigue, fever(s), poor appetite, weight gain or weight loss ENT HEENT: Denies mouth lesions Cardiovascular Cardiovascular: Denies abdominal bloating, abdominal edema or abdominal pain Respiratory/Chest Respiratory/Chest: Denies change in mental status, change in phlegm color, chest congestion or chest tightness Gastrointestinal Gastrointestinal: Denies belching, bloating, change in bowel habits, change in stool character, chewing difficulty, coffee ground emesis, constipation, cramping, diarrhea, dyspepsia, dysphagia, early satiety, excessive flatus, fecal incontinence, heartburn, hematemesis, hematochezia, hemorrhoids, loose stools, melena, nausea, odynophagia, rectal bleeding, tenesmus, vomiting or weight changes Genitourinary Genitourinary: Denies abdominal discomfort, burning urination or itching Musculoskeletal Musculoskeletal: Reports as per HPI; Denies muscle weakness or myalgias Integumentary Integumentary: Denies jaundice Neurologic Neurologic: Denies lack of coordination or weakness Psychiatric Psychiatric: Denies confusion, depression, memory loss, mood swings, paranoia or suicidal ideation Endocrine Endocrinology: Denies systems reviewed and no addt'l complaints, except as documented Hematologic/Lymphatic Hematologic/Lymphatic: Denies anemia, easy bleeding, easy bruising or lymphadenopathy Allergic/Immunologic Allergic/Immunologic: Denies systems reviewed and no addt'l complaints, except as documented Physical Exam Const alert General Appearance: cooperative Orientation / Consciousness: oriented to person HEENT hearing grossly normal bilaterally Head and Scalp: normal to inspection Face and Sinus: face symmetric Nose: external nose normal Mouth: oral and palatal mucosa normal Eyes conjunctivae normal General Eye: normal appearance of both eyes Neck full ROM General: normal visual inspection Lymph Lymphatic: no lymphadenopathy noted Chest inspection of chest normal and palpation of chest normal Chest: symmetrical chest wall rise Resp normal respiratory effort Effort and Inspection: able to speak in complete sentences Cardio regular rate GI non-distended Percussion: normal to percussion Rectal Exam: deferred Neuro Speech: speech normal Gait (Neuro): normal gait Lab / Micro Data Result Diagrams: 04/12/21 10:13 document embedded image 04/12/21 10:13 document embedded image Labs:Laboratory Results - last 24 hr 04/12/21 10:13: WBC 8.9, RBC 5.12, Hgb 15.5, Hct 48.2, MCV 94.1 H, MCH 30.3, MCHC 32.2, RDW Std Deviation 46.0 H, RDW Coeff of Elly 13.2, Plt Count 282, MPV 11.5, Immature Gran % (Auto) 0.300, Neut % (Auto) 84.3 H, Lymph % (Auto) 12.0 L, [place] % (Auto) 2.0, Eos % (Auto) 0.3, Baso % (Auto) 1.1 H, Absolute Neuts (auto) 7.5, Absolute Lymphs (auto) 1.07, Nucleated RBC % 0 04/12/21 10:13: Sodium 137, Potassium 4.7, Chloride 103, Carbon Dioxide 27.0, Anion Gap 7, BUN 14, Creatinine 0.97, Estim Creat Clear Calc 111.06, Est GFR (MDRD) Af Amer 107, Est GFR (MDRD) Non-Af 89, BUN/Creatinine Ratio 14.4, Glucose 289 H, Calcium 9.3, Total Bilirubin 0.70, Direct Bilirubin 0.13, AST 17, ALT 25, Alkaline Phosphatase 109, Total Protein 7.5, Albumin 3.8, Globulin 3.7, Lipase 41 L 04/12/21 10:13: Phosphorus 2.3 L, Magnesium 2.2 04/12/21 17:47: POC Glucose 270 H Radiology Impression Abdomen Ultrasound 04/12/21 10:24 IMPRESSION: Normal right upper quadrant ultrasound examination. Electronically Signed: Luis Cook MD at 11:52 EST , Service support , Abdomen/Pelvis CT 04/12/21 13:24 IMPRESSION: The stomach is fluid distended. Findings suggestive of edematous changes with mucosal thickening of the second portion of the duodenum. Pancreatic atrophy. Distended urinary bladder. Electronically Signed: Luis Cook MD at 15:06 EST , Service support , Assessment & Plan Assessment/Plan (1) Gastric outlet obstruction: PLAN: Gastric outlet obstruction possibly secondary to duodenitis. The differential diagnosis would include pyloric stenosis, stricture of the first portion of the duodenum secondary to H. pylori or chronic stasis. He will undergo an upper endoscopy to evaluate his upper GI tract. He was explained alternatives, risk, benefits including outstanding bleeding, infection, sepsis, perforation, need for emergent and . He will have an ASA of 1. (2) Chronic pancreatitis: PLAN: It is not known if he truly has a history of chronic pancreatitis or acute recurrent pancreatitis. His CT scan did not show any signs of calcification in the pancreas. He will need an MRI and possible endoscopic ultrasound. (3) Duodenitis: PLAN: For his duodenitis we will put him on a PPI drip, azithromycin and Reglan therapy. Hopefully he will not have any contents in his GI tract tomorrow morning we perform upper endoscopy Charges/Coding Visit Charges Inpatient E&M: 61837 Init Hosp L3 04/12/21 1832 <Electronically signed by Segundo Friend There are no clinical changes since date of exam.
--- NOTE | 2021-06-29 | EGD_PTH ---
PATIENT: KEENAN AYALA LOC: EN U#:[id number] AGE/SX: 46/M ROOM: RE06/29/[address]: Dr. Segundo Villeda DO : 1975 BED: DIS: 06/29/2021 SPEC #: [id number] RECD: 06/29/21 12:03 STATUS: SHIVANI YUE #: [id number] SHREYA: 06/29/21 00:[address]: Segundo Villeda DEPT: SURGICAL PATHOLOGY RECD BY: Chet Hensley ENTERED: 06/29/21 12:03 SP TYPE: EGD BIOPSY OT DR: Abhishek Nance, PHOTOGRAPH PRINTER-C Tissues: A - Duodenum, NOS B - Esophageal mucous membrane Procedures: Special Stain Group II Surgery Specimen Level IV Alcian Blue/PAS (control) HEADER OPER[place] [place] DIAGNOSIS: Gastric outlet obstruction, chronic pancreatitis, duodenitis TISSUE SUBMITTED: A ? Duodenal bulb/duodenal mass biopsy, B ? Distal esophagus biopsy MICROSCOPIC DIAGNOSIS A. Duodenal bulb/mass biopsy: Fragments of duodenal mucosa with extension of ulceration and acute and chronic inflammation. Negative for malignancy. See comment. B. Distal esophagus, biopsy: Fragments of gastroesophageal mucosa with intestinal metaplasia (goblet cell metaplasia) consistent with Mosher?s esophagus. Moderate chronic inflammation. Negative for dysplasia. See comment. SJ:rg 06/30/2021 COMMENT A. Immunohistochemistry ([id number]) supports the above diagnosis. Lymphocytes are polytypic in nature. B. Alcian blue/PAS stain with matched control is used in the evaluation of the specimen. Immunohistochemistry ([id number]) for P53 and Ki-67 will be performed and results will be reported separately. Case has been reviewed in consultation with Dr. Nolasco who concurs with the above diagnosis. IDC:AM MICROSCOPIC DESCRIPTION Slides are reviewed. GROSS DESCRIPTION A - Received in fixative is one container labeled with the patient's name and designated duodenal mass biopsy. The specimen consists of multiple irregular fragments of light vila soft tissue that in aggregate measure 1.5 x 0.6 x 0.1 cm. The specimen is totally submitted in one cassette. B - Received in fixative is one container labeled with the patient's name and designated distal esophagus. The specimen consists of multiple irregular fragments of light vila soft tissue that in aggregate measure 1 x 1 x 0.1 cm. The specimen is totally submitted in one cassette. / AM:luann 06/29/2021 TC:2 CPT: 88928 x2, 15251
--- NOTE | 2021-06-29 | IMM_PTH ---
PATIENT: KEENAN AYALA LOC: EN U#:[id number] AGE/SX: 46/M ROOM: RE06/29/[address]: Dr. Segundo Villeda DO : 1975 BED: DIS: 06/29/2021 SPEC #: [id number] RECD: 06/30/21 11:39 STATUS: SHIVANI REQ #: [id number] SHREYA: 06/29/21 00:[address]: Segundo Villeda DEPT: IMMUNOHISTOCHEMISTRY RECD BY: Niyah Henao ENTERED: 06/30/21 11:42 SP TYPE: IMMUNO OTHR DR: Abhishek Nance, CORNICE MAKER-C Tissues: A - Duodenum, NOS B - Esophagus, NOS Procedures: P53 (initial) CD20 (add) CD45 (add) CD5 (add) CD79A (add) KI-67 (add) CD3 (initial) PHYSICIAN & INSTITUTION [place] [id number] SPECIMEN INFORMATION: Tissue Source: A ? Duodenal bulb/mass biopsy, B ? Distal esophagus biopsy Clinical Info: Gastric outlet obstruction, chronic pancreatitis, duodenitis Specimen Number: [id number] A & B CPT code: 07651 x2, 26046 x5 METHODOLOGY: Deparaffinized sections of prefer/formalin-fixed tissue or PAP/DQ stained slides are incubated with monoclonal/polyclonal antibodies/oligonucleotide probes. Localization is made via biotin free immunoperoxidase method. Appropriate controls are performed and reacted as expected. Results on target cell population are indicated in the following table: RESULTS: ANTIBODY / CLONE RESULT Block A CD3 (PS1) positive CD5 (SP10) positive CD20 (L26) positive CD45 (RP2/18) positive CD79a (11E3) positive Block B P53 (DO-7) negative Ki-67 (30-9) positive, very low These tests were developed and their performance characteristics determined by [facility]. They may not have been cleared or approved by the U.S. Food and Drug Administration. The FDA has determined that such clearance or approval is not necessary. The above immunohistochemical/dualISH markers are ordered and reviewed by the Pathologist. INTERPRETATION: A. Duodenal bulb/mass, biopsy: Negative for malignancy. Lymphocytes are polytypic in nature. B. Distal esophagus, biopsy: Negative for dysplasia. SJ:luann 07/01/2021
[2021-06-29] MEDS: Lactated Ringers 1,000 ML 15 ML IV (05:45)
[2021-06-29 06:00] VITALS: BP 132/64; PULSE 64; RESP 15; TEMP 36.6; O2SAT 98; BMI 21.2
[2021-06-29 06:10] LABS: Bedside Glucose 118 mg/dL (74-106)
--- NOTE | 2021-06-29 06:38 | PCM.HP.BLA ---
History and Physical Date of Admission: 06/29/21 46 M who presents 46 M who presented to my office today for evaluation of nausea vomiting. He has a 40-year history of type 1 diabetes. He says he only suffers from a mononeuropathy. He denies any nephropathy or retinopathy. He also has a diagnosis of gastroparesis thought to be secondary to diabetes. He does not know what his last hemoglobin A1c. He does not have any frequent urination. At this time he is not having any problems with diarrhea. He was previously diagnosed with with acute pancreatitis. He thinks he has a diagnosis of chronic pancreatitis but he does not now. He was in [place] where he had multiple episodes of pancreatitis. His last episode was in [place]. He did not get admitted at that time. He has been admitted in the past. 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 He has been having recurrent pancreatitis for the last two years as per the patient. This is caused him to lose over 40 pounds. The last time he had symptoms was a couple of weeks ago which included emesis, diarrhea with some blood after 2-3 days of symptoms, nausea, bloating, abdominal pain particularly in the right side, decreased appetite. Symptoms last 4-5 days, sometimes liquid diet will resolve symptoms and sometimes he needs to go to ED for treatment. Initially thought is was alcohol related then diet related. Was previously drinking one alcoholic drink a day but has stopped drinking a year ago. He does use marijuana daily with varying amounts daily and has decreased lately. Gets about eight episodes a year. Type I diabetic. He has had a gastric emptying study due to gastroparesis related to diabetes. Study showed that he has delayed emptying. States he has not been having issues since better management of DM I. Denies history of EGD and colonoscopy. He came into the hospital today with worsening abdominal pain. He was eating normally when he developed acute onset of midepigastric pain. He had multiple episodes of nausea vomiting. In the emergency room he got a CT scan of the abdomen and pelvis and it showed thickening in the duodenum with a lot of food and liquid contents in his stomach. An NG tube was attempted to be placed into his stomach, but he vomited up a lot of the food that was in the stomach. His blood sugar in the ED was 270. [facility] Medical History Chronic pancreatitis Depression Diabetes mellitus with insulin therapy Gastroparesis GERD (gastroesophageal reflux disease) Nausea and vomiting Neuropathy Pancreatitis Stroke Tobacco abuse Home Medications insulin aspar prt-insulin aspart 100 unit/mL (70-30) subcutaneous soln 1 sliding scale dose SUBCUT USEASDIRECTD 03/02/21 [History Last Taken Unknown] insulin regular human 100 unit/mL injection solution 1 sliding scale dose SUBCUT USEASDIRECTD 03/02/21 [History Last Taken Unknown] Allergy/AdvReac Type Severity Reaction Status Date / Time bee venom protein (honey bee) Allergy Severe Anaphylaxis Verified 04/12/21 09:59 Surgical History History of appendectomy Social History Smoking Status: Current every day smoker tobacco type: cigarettes ROS Review of Systems ROS Unobtainable: other Constitutional Constitutional: Denies fatigue, fever(s), poor appetite, weight gain or weight loss ENT HEENT: Denies mouth lesions Cardiovascular Cardiovascular: Denies abdominal bloating, abdominal edema or abdominal pain Respiratory/Chest Respiratory/Chest: Denies change in mental status, change in phlegm color, chest congestion or chest tightness Gastrointestinal Gastrointestinal: Denies belching, bloating, change in bowel habits, change in stool character, chewing difficulty, coffee ground emesis, constipation, cramping, diarrhea, dyspepsia, dysphagia, early satiety, excessive flatus, fecal incontinence, heartburn, hematemesis, hematochezia, hemorrhoids, loose stools, melena, nausea, odynophagia, rectal bleeding, tenesmus, vomiting or weight changes Genitourinary Genitourinary: Denies abdominal discomfort, burning urination or itching Musculoskeletal Musculoskeletal: Reports as per HPI; Denies muscle weakness or myalgias Integumentary Integumentary: Denies jaundice Neurologic Neurologic: Denies lack of coordination or weakness Psychiatric Psychiatric: Denies confusion, depression, memory loss, mood swings, paranoia or suicidal ideation Endocrine Endocrinology: Denies systems reviewed and no addt'l complaints, except as documented Hematologic/Lymphatic Hematologic/Lymphatic: Denies anemia, easy bleeding, easy bruising or lymphadenopathy Allergic/Immunologic Allergic/Immunologic: Denies systems reviewed and no addt'l complaints, except as documented Physical Exam Const alert General Appearance: cooperative Orientation / Consciousness: oriented to person HEENT hearing grossly normal bilaterally Head and Scalp: normal to inspection Face and Sinus: face symmetric Nose: external nose normal Mouth: oral and palatal mucosa normal Eyes conjunctivae normal General Eye: normal appearance of both eyes Neck full ROM General: normal visual inspection Lymph Lymphatic: no lymphadenopathy noted Chest inspection of chest normal and palpation of chest normal Chest: symmetrical chest wall rise Resp normal respiratory effort Effort and Inspection: able to speak in complete sentences Cardio regular rate GI non-distended Percussion: normal to percussion Rectal Exam: deferred Neuro Speech: speech normal Gait (Neuro): normal gait Lab / Micro Data Result Diagrams: 04/12/21 10:13 document embedded image 04/12/21 10:13 document embedded image Labs:Laboratory Results - last 24 hr 04/12/21 10:13: WBC 8.9, RBC 5.12, Hgb 15.5, Hct 48.2, MCV 94.1 H, MCH 30.3, MCHC 32.2, RDW Std Deviation 46.0 H, RDW Coeff of Elly 13.2, Plt Count 282, MPV 11.5, Immature Gran % (Auto) 0.300, Neut % (Auto) 84.3 H, Lymph % (Auto) 12.0 L, [place] % (Auto) 2.0, Eos % (Auto) 0.3, Baso % (Auto) 1.1 H, Absolute Neuts (auto) 7.5, Absolute Lymphs (auto) 1.07, Nucleated RBC % 0 04/12/21 10:13: Sodium 137, Potassium 4.7, Chloride 103, Carbon Dioxide 27.0, Anion Gap 7, BUN 14, Creatinine 0.97, Estim Creat Clear Calc 111.06, Est GFR (MDRD) Af Amer 107, Est GFR (MDRD) Non-Af 89, BUN/Creatinine Ratio 14.4, Glucose 289 H, Calcium 9.3, Total Bilirubin 0.70, Direct Bilirubin 0.13, AST 17, ALT 25, Alkaline Phosphatase 109, Total Protein 7.5, Albumin 3.8, Globulin 3.7, Lipase 41 L 04/12/21 10:13: Phosphorus 2.3 L, Magnesium 2.2 04/12/21 17:47: POC Glucose 270 H Radiology Impression Abdomen Ultrasound 04/12/21 10:24 IMPRESSION: Normal right upper quadrant ultrasound examination. Electronically Signed: Luis Cook MD at 11:52 EST , Service support , Abdomen/Pelvis CT 04/12/21 13:24 IMPRESSION: The stomach is fluid distended. Findings suggestive of edematous changes with mucosal thickening of the second portion of the duodenum. Pancreatic atrophy. Distended urinary bladder. Electronically Signed: Luis Cook MD at 15:06 EST , Service support , Assessment & Plan Assessment/Plan (1) Gastric outlet obstruction: PLAN: Gastric outlet obstruction possibly secondary to duodenitis. The differential diagnosis would include pyloric stenosis, stricture of the first portion of the duodenum secondary to H. pylori or chronic stasis. He will undergo an upper endoscopy to evaluate his upper GI tract. He was explained alternatives, risk, benefits including outstanding bleeding, infection, sepsis, perforation, need for emergent and . He will have an ASA of 1. (2) Chronic pancreatitis: PLAN: It is not known if he truly has a history of chronic pancreatitis or acute recurrent pancreatitis. His CT scan did not show any signs of calcification in the pancreas. He will need an MRI and possible endoscopic ultrasound. (3) Duodenitis: PLAN: For his duodenitis we will put him on a PPI drip, azithromycin and Reglan therapy. Hopefully he will not have any contents in his GI tract tomorrow morning we perform upper endoscopy I have re-examined the patient. There are no clinical changes since date of exam.
[2021-06-29 07:00] VITALS: BP 114/76; BP 132/64; PULSE 70; RESP 16; TEMP 36.1; O2SAT 97
--- NOTE | 2021-06-29 07:02 | OP.CCLET_ITS ---
12/22/2021 Inez Lyon Re : Upper GI endoscopy procedure for Isak Thao Dear Goyo This procedure was performed on Tuesday, June 29, 2021. My impressions and recommendations are as follows: Impressions : - Esophageal mucosal changes suspicious for short-segment Mosher's esophagus. Biopsied. - Portal hypertensive gastropathy. - Multiple non-bleeding duodenal ulcers with no stigmata of bleeding. Biopsied. Recommendations : - Discharge patient to home. - Advance diet as tolerated. - Use Protonix (pantoprazole) 40 mg PO BID for 8 weeks. - Use sucralfate suspension 1 gram PO QID for 4 weeks. - Continue present medications. - No aspirin, ibuprofen, naproxen, or other non-steroidal anti-inflammatory drugs. My findings are described in the full procedure note, which is enclosed. If I can be of further assistance, please feel free to contact me at . Sincerely, Segundo Villeda, 06/29/2021 7:01:48 AM This report has been signed electronically.
--- NOTE | 2021-06-29 07:02 | OP.EGD_ITS ---
Patient Name: Isak Thao Procedure Date: 06/29/2021 6:17 AM Date of : 1975 Age: 46 Procedure: Upper GI endoscopy Indications: Epigastric abdominal pain Providers: Segundo Villeda DO Referring MD: Inez Lyon Medicines: See the Anesthesia note for documentation of the administered medications Patient Profile: This is a 46 year old male. Refer to note in patient chart for documentation of history and physical. Patient has symptoms of acute epigastric abdominal pain. Complications: No immediate complications. Procedure: Pre-Anesthesia Assessment: - Prior to the procedure, a History and Physical was performed, and patient medications and allergies were reviewed. The patient is competent. The risks and benefits of the procedure and the sedation options and risks were discussed with the patient. All questions were answered and informed consent was obtained. Patient identification and proposed procedure were verified by the physician in the pre-procedure area. Mental Status Examination: alert and oriented. Airway Examination: normal oropharyngeal airway and neck mobility. Respiratory Examination: clear to auscultation. CV Examination: normal. Prophylactic Antibiotics: The patient does not require prophylactic antibiotics. Prior Anticoagulants: The patient has taken no previous anticoagulant or antiplatelet agents. After reviewing the risks and benefits, the patient was deemed in satisfactory condition to undergo the procedure. The anesthesia plan was to use moderate sedation / analgesia (conscious sedation). Immediately prior to administration of medications, the patient was re-assessed for adequacy to receive sedatives. The heart rate, respiratory rate, oxygen saturations, blood pressure, adequacy of pulmonary ventilation, and response to care were monitored throughout the procedure. The physical status of the patient was re-assessed after the procedure. After obtaining informed consent, the endoscope was passed under direct vision. Throughout the procedure, the patient's blood pressure, pulse, and oxygen saturations were monitored continuously. The gastroscope was introduced through the mouth, and advanced to the second part of duodenum. The upper GI endoscopy was accomplished without difficulty. The patient tolerated the procedure well. Moderate Sedation: Moderate (conscious) sedation was administered by the endoscopy nurse and supervised by the endoscopist. The patient's oxygen saturation, heart rate, blood pressure and response to care were monitored. Total physician intraservice time was 15 minutes. Scope In: 6:43:44 AM Scope Out: 6:54:16 AM Total Procedure Duration Time 0 hours 10 minutes 32 seconds Findings: There were esophageal mucosal changes suspicious for short-segment Mosher's esophagus present in the lower third of the esophagus. The maximum longitudinal extent of these mucosal changes was 2 cm in length. Mucosa was biopsied with a cold forceps for histology in 4 quadrants at intervals of 1 cm in the lower third of the esophagus. A total of 3 specimen bottles were sent to pathology. Verification of patient identification for the specimen was done. Estimated blood loss was minimal. Mild portal hypertensive gastropathy was found in the gastric body. Two non-bleeding cratered duodenal ulcers with no stigmata of bleeding were found in the duodenal bulb. The largest lesion was 7 mm in largest dimension. This was biopsied with a cold forceps for histology. Verification of patient identification for the specimen was done. Estimated blood loss was minimal. Impression: - Esophageal mucosal changes suspicious for short-segment Mosher's esophagus. Biopsied. - Portal hypertensive gastropathy. - Multiple non-bleeding duodenal ulcers with no stigmata of bleeding. Biopsied. Recommendation: - Discharge patient to home. - Advance diet as tolerated. - Use Protonix (pantoprazole) 40 mg PO BID for 8 weeks. - Use sucralfate suspension 1 gram PO QID for 4 weeks. - Continue present medications. - No aspirin, ibuprofen, naproxen, or other non-steroidal anti-inflammatory drugs. Procedure Code(s): --- Professional --- 88434, Esophagogastroduodenoscopy, flexible, transoral; with biopsy, single or multiple 18982, 59, Moderate sedation services provided by the same physician or other qualified health point of care specialist performing the diagnostic or therapeutic service that the sedation supports, requiring the presence of an independent trained observer to assist in the monitoring of the patient's level of consciousness and physiological status; initial 15 minutes of intraservice time, patient age 5 years or older CPT copyright 2017 [employer]. All rights reserved. The codes documented in this report are preliminary and upon remote inpatient coder review may be revised to meet current compliance requirements. Segundo Villeda DO 06/29/2021 7:01:48 AM This report has been signed electronically. Number of Addenda: 1 Note Initiated On: 06/29/2021 6:17 AM Addendum Number: 1 Addendum Date: 12/22/2021 6:48:17 AM MAC was used as sedation for this procedure. Segundo Villeda DO 12/22/2021 6:48:22 AM This report has been signed electronically.
[2021-06-29 07:05] VITALS: BP 125/78; BP 132/64; PULSE 77; RESP 106; O2SAT 98
[2021-06-29 07:10] VITALS: BP 128/76; BP 132/64; PULSE 66; RESP 16; O2SAT 100
[2021-06-29 07:15] VITALS: BP 121/94; BP 132/64; PULSE 65; RESP 16; TEMP 36.3; O2SAT 100
[2021-06-29 07:40] VITALS: BP 132/64
== END 2021-06-29 23:59 | disposition home or self-care (01) ==
LOC: EN 05:24 → AC 05:24
PROVIDERS: PCP Nurse Practitioner Family; Referring Provider Nurse Practitioner Family; Visit Provider Internal Medicine Gastroenterology
PROC: 0DJ08ZZ Inspection of Upper Intestinal Tract, Via Natural or Artificial Opening Endoscopic (ICD-10-PCS; CPT 43235; principal; 2021-06-29 06:25)
DX: K26.3 Acute duodenal ulcer without hemorrhage or perforation (principal); K76.6 Portal hypertension; E10.41 Type 1 diabetes mellitus with diabetic mononeuropathy; Z79.4 Long term (current) use of insulin; K22.70 Barrett's esophagus without dysplasia; F12.90 Cannabis use, unspecified, uncomplicated; K31.89 Other diseases of stomach and duodenum; F17.210 Nicotine dependence, cigarettes, uncomplicated; Z86.73 Personal history of transient ischemic attack (TIA), and cerebral infarction without residual deficits
CPT/HCPCS: 43239; 82962; 87426; 88305; 88313; 88341; 88342; C9803; J7120; J2405

== ENCOUNTER 2021-06-30 08:59 | Emergency (ER) | payer MEDICAID, SELFPAY ==
[2021-06-30 09:00] VITALS: BP 153/92; PULSE 54; RESP 23; TEMP 36.5; O2SAT 100; BMI 21.5
[2021-06-30 09:19] LABS: Absolute Lymphocyte Count 0.95 X10^3/uL (0.83-4.51); Absolute Neutrophil Count 8.6 X10^3/uL (2.0-7.7); Basophil# 0.09 X10^3/uL; Basophil% 0.9 % (0-1); Eosinophil# 0.03 X10^3/uL; Eosinophils% 0.3 % (0-5); Hematocrit 45.1 % (40-54); Lymphocyte # 0.95 X10^3/ul (0.83-4.51); Lymphocyte % 9.6 % (19-41); Mean Corp Hgb Conc 33.3 g/dL (32-36); Mean Corpuscular Hgb 30.6 pg (27.0-32.0); Mean Platelet Vol. 11.3 fl (6.2-12.0); Monocyte# 0.14 X10^3/uL; Monocyte% 1.4 % (0-10); NRBC Flagged by Analyzer 0 % (0-5); Neutrophil # 8.61 X10^3/uL (2.7-7.7); Neutrophil % 87.5 % (47-70); Platelet Count 272 K/mm3 (150-450); RBC Distribution Width CV 13.2 % (11.6-14.6); White Blood Count 9.9 K/mm3 (4.4-11.0)
[2021-06-30 09:35] LABS: Anion Gap 6 (5-15); BUN 22 mg/dL (7-18); BUN/Creat Ratio 20.8 RATIO (10-20); Calcium,Total 8.5 mg/dL (8.5-10.1); Chloride 103 mmol/L (98-107); Creatinine, Serum 1.06 mg/dL (0.70-1.30); EST Glomerular Filtration Rate 80 mL/min (>60); Est Glom Filt Rate - Afr Amer 97 mL/min (>60); Estimated Creatinine Clearance 94.85 ml/min; Glucose 343 mg/dL (74-106); Potassium 4.8 mmol/L (3.5-5.1); Sodium Level 136 mmol/L (136-145)
--- NOTE | 2021-06-30 09:58 | ED.VIS.GI ---
HPI HPI - GI History of Present Illness Chief Complaint: GI Bleed Informant: patient Abdominal Pain/Flank Pain Onset: Today and Hours (9) Context: Sudden Onset Timing: Continuous Quality: Aching Location: RLQ Worsened by: Nothing Relieved by: Nothing Nausea/Vomiting/Emesis GI Symptom: Positive for Nausea and Vomiting Quality: Positive for Hematemesis (1 episode) Diarrhea/Melena/Hematochezia GI Symptom: Negative for Diarrhea, Melena and Hematochezia Associated Symptoms Associated Symptoms: Negative for Dysuria, Frequency and Hematuria Narrative Narrative: Patient presents with abdominal pain that began today approximately 9 hours prior to arrival. Patient states it began rather suddenly. Patient states it has been constant. Patient states it is worse over the right lower abdomen. Patient dates nothing makes it better nothing makes it worse. Patient admits to nausea and vomiting. Patient denies any diarrhea, melena, or hematochezia. Patient states that he did have an episode of hematemesis earlier today. Patient does admit to some shortness of breath after vomiting. Patient denies any urinary complaints. PFSH [facility] Medical History Chronic pancreatitis Chronic pancreatitis Depression Diabetes Diabetes mellitus with insulin therapy Dietary restriction DM type 1, goal: symptom mgmt Gastroparesis GERD (gastroesophageal reflux disease) Insulin dependent diabetes mellitus Marijuana use Nausea and vomiting Neuropathy Pancreatitis Smoker Stroke Tobacco abuse Wears glasses Home Medications insulin aspar prt-insulin aspart 100 unit/mL (70-30) subcutaneous soln 25 unit SUBCUT BID 03/02/21 [History Last Taken 06/28/21] insulin regular human 100 unit/mL injection solution 1 sliding scale dose SUBCUT USEASDIRECTD 03/02/21 [History Last Taken 06/28/21] meloxicam 15 mg PO DAILY 06/27/21 [History Last Taken 06/28/21] pantoprazole 40 mg tablet,delayed release 40 mg PO BID 56 Days #112 tab 06/29/21 [Rx Last Taken Unknown] sucralfate 100 mg/mL oral suspension 10 ml PO Q6H 28 Days #1120 ml 06/29/21 [Rx Last Taken Unknown] metoclopramide HCl [Reglan] 10 mg PO TIDCM #90 tab 06/30/21 [Rx Last Taken Unknown] ondansetron 4 mg PO Q8H PRN PRN #10 tab 06/30/21 [Rx Last Taken Unknown] Allergy/AdvReac Type Severity Reaction Status Date / Time bee venom protein (honey bee) Allergy Severe Anaphylaxis Verified 06/29/21 05:59 Surgical History History of appendectomy History of wisdom tooth extraction Social History Smoking Status: Current every day smoker tobacco type: cigarettes ROS ROS ED Constitutional Constitutional ED: Reports chills and subjective; Denies fever(s) Eyes Eyes: Denies blurry vision or change in vision ENT ENT ED: Denies rhinorrhea or sore throat Cardiovascular Cardiovascular: Denies chest pain or palpitations Respiratory/Chest Respiratory/Chest: Reports dyspnea; Denies cough Gastrointestinal Gastrointestinal: Reports abdominal pain, nausea and vomiting; Denies diarrhea or melena Genitourinary Genitourinary ED: Denies dysuria or hematuria Musculoskeletal Musculoskeletal: Reports neck pain; Denies back pain Integumentary Denies abscess or rash Neurologic Neurologic: Denies headache(s) or weakness Allergic/Immunologic Allergic/Immunologic ED: Denies mouth swelling or urticaria EXAM Physical Exam Const Vital Signs: 06/30/21 09:00 06/30/21 10:25 06/30/21 13:36 Temperature 97.7 F L Temperature Source Temporal Pulse Rate 54 L 55 L 72 Respiratory Rate 23 H 17 17 Blood Pressure 153/92 H 152/93 H 117/79 Blood Pressure Mean 112 112 91 Pulse Ox 100 98 96 Oxygen Delivery Method Room Air Room Air Room Air Positive well nourished and well developed General Appearance ED: well developed and NAD HEENT Reports moist mucous membranes Neck supple and no JVD Resp normal respiratory effort and clear to auscultation bilaterally Cardio regular rate, regular rhythm and no murmurs GI normal to inspection, nondistended, normoactive bowel sounds Palpation: soft and tender epigastric, LLQ, RLQ, LUQ, RUQ, periumbilical and suprapubic; Negative for guarding or rebound tenderness present Extremity normal to inspection General Extremety ED: Negative for edema or tenderness General Extremity: Negative for edema Neuro oriented x3, CN's II-XII intact bilaterally and no sensory deficits noted Sensorium / Orientation: alert Motor Exam: strength 5/5 throughout Psych mental status grossly normal Skin no rashes or lesions noted MDM MDM MDM Narrative Medical decision making narrative: Patient was given IV fluids, morphine, and Zofran here. CBC was within normal limits. Hemoglobin was stable at 15. Basic metabolic profile showed an elevated glucose of 343. BUN was 22. Remainder was within normal limits. PT with INR and PTT were within normal limits. Liver profile was obtained and was within normal limits. Serum acetone was negative. Urinalysis shows glucose of 1000 and ketones of 150. There is no evidence of urinary tract infection or hematuria. Patient was given a dose of insulin here. Patient is no longer vomiting. Patient was instructed to continue his pantoprazole and Carafate as prescribed. Patient was given a prescription for Zofran. Case was discussed with Dr. Villeda. He recommended prescribing Reglan as well. Patient was instructed to follow-up with his primary care physician as well as Dr. Villeda in 5 to 7 days. Patient understood and was agreeable with the plan. All questions were answered. Lab Data Attestation: I reviewed the patient's lab results. Labs: Laboratory Results - last 24 hr 06/30/21 06/30/21 06/30/21 09:04 09:04 09:04 WBC 9.9 RBC 4.90 Hgb 15.0 Hct 45.1 MCV 92.0 MCH 30.6 MCHC 33.3 RDW Std Deviation 45.0 H RDW Coeff of Elly 13.2 Plt Count 272 MPV 11.3 Immature Gran % (Auto) 0.300 Neut % (Auto) 87.5 H Lymph % (Auto) 9.6 L [place] % (Auto) 1.4 Eos % (Auto) 0.3 Baso % (Auto) 0.9 Absolute Neuts (auto) 8.6 H Absolute Lymphs (auto) 0.95 Nucleated RBC % 0 PT 12.9 INR 1.0 APTT 28.0 Sodium 136 Potassium 4.8 Chloride 103 Carbon Dioxide 27.0 Anion Gap 6 BUN 22 H Creatinine 1.06 Estim Creat Clear Calc 94.85 Est GFR (MDRD) Af Amer 97 Est GFR (MDRD) Non-Af 80 BUN/Creatinine Ratio 20.8 H Glucose 343 H Calcium 8.5 Total Bilirubin Direct Bilirubin AST ALT Alkaline Phosphatase Total Protein Albumin Globulin Lipase Urine Color Urine Clarity Urine pH Ur Specific [place] Urine Protein Urine Glucose (UA) Urine Ketones Urine Occult Blood Urine Nitrite Urine Bilirubin Urine Urobilinogen Ur Leukocyte Esterase Urine RBC Urine WBC Ur Squamous Epith Cells Urine Bacteria Urine Mucus Acetone Level 06/30/21 06/30/21 06/30/21 09:04 09:04 12:32 WBC RBC Hgb Hct MCV MCH MCHC RDW Std Deviation RDW Coeff of Elly Plt Count MPV Immature Gran % (Auto) Neut % (Auto) Lymph % (Auto) [place] % (Auto) Eos % (Auto) Baso % (Auto) Absolute Neuts (auto) Absolute Lymphs (auto) Nucleated RBC % PT INR APTT Sodium Potassium Chloride Carbon Dioxide Anion Gap BUN Creatinine Estim Creat Clear Calc Est GFR (MDRD) Af Amer Est GFR (MDRD) Non-Af BUN/Creatinine Ratio Glucose Calcium Total Bilirubin 0.70 Direct Bilirubin 0.31 H AST 15 ALT 26 Alkaline Phosphatase 104 Total Protein 6.7 Albumin 3.7 Globulin 3.0 Lipase 50 L Urine Color Yellow Urine Clarity Clear Urine pH 6.5 Ur Specific [place] 1.015 Urine Protein Negative Urine Glucose (UA) 1000 H Urine Ketones 150 A* Urine Occult Blood Negative Urine Nitrite Negative Urine Bilirubin Negative Urine Urobilinogen Normal Ur Leukocyte Esterase Negative Urine RBC 0 SEEN Urine WBC 0 SEEN Ur Squamous Epith Cells 0 SEEN Urine Bacteria 0 SEEN Urine Mucus 0 SEEN Acetone Level NEGATIVE Discharge Plan Triage Chief Complaint: GI Bleed ED Provider: Chandan Leonardo Dx/Rx/DC Orders Clinical Impression: Nausea and vomiting, Hyperglycemia Instructions: ED Vomiting (Adult) Prescriptions: New metoclopramide HCl [Reglan] 10 mg tablet 10 mg PO TIDCM Qty: 90 RF: 0 ondansetron [ondansetron] 4 MG tablet 4 mg PO Q8H PRN PRN (Reason: Nausea) Qty: 10 RF: 0 No Action insulin asp prt-insulin aspart [Novolog Mix 70-30 U-100 Insuln] 100 unit/mL (70-30) solution 25 unit subcut BID RF: 0 Humulin R Regular U-100 Insuln 100 unit/mL solution 1 sliding scale dose subcut USEASDIRECTD RF: 0 meloxicam 15 mg Tablet 15 mg PO DAILY RF: 0 sucralfate 100 mg/mL suspension 10 ml PO Q6H 28 Days Qty: 1120 RF: 0 pantoprazole 40 mg tablet,delayed release (DR/EC) 40 mg PO BID 56 Days Qty: 112 RF: 0 Primary Care Provider: Abhishek Nance NP Referrals: Segundo Villeda DO [STAFF PHYSICIAN] - 5-7 Days Abhishek Nance NP, [facility] [Primary Care Provider] - 3-5 Days Disposition Disposition: Home, Self Care Discharge Date/Time: 06/30/21 13:37
[2021-06-30 10:25] VITALS: BP 152/93; PULSE 55; RESP 17; O2SAT 98
[2021-06-30] MEDS: 0.9% Normal Saline 1,000 ML 1000 ML IV (10:31)
[2021-06-30] MEDS: Ondansetron 4 MG/2 ML Vial IV (10:32)
[2021-06-30] MEDS: Morphine 4 MG/ML Syringe IV (10:33)
[2021-06-30] MEDS: Insulin Lispro 100 UNIT/ML INSULN.PEN 15 UNIT SC (10:34)
[2021-06-30 10:40] LABS: Prothrombin Time (Protime)PT. 12.9 SECONDS (11.7-14.9)
[2021-06-30 10:50] LABS: AST(SGOT) 15 U/L (15-37); Alanine Aminotransfer ALT/SGPT 26 U/L (16-61); Albumin, Serum 3.7 g/dL (3.2-5.0); Alkaline Phosphatase 104 U/L (45-117); Bilirubin, Direct 0.31 mg/dL (0.00-0.30); Lipase 50 U/L (73-393); Protein, Total 6.7 g/dL (6.4-8.2)
[2021-06-30 12:39] LABS: Bacteria 0 SEEN /hpf (None Seen); Mucous, Urine 0 SEEN /hpf (<or=2+); Red Blood Cells-Urine 0 SEEN /hpf (0-5); Squamous Epithelial Cells - UA 0 SEEN /hpf (0-5); White Blood Cells 0 SEEN /hpf (0-5)
[2021-06-30 12:42] LABS: Color, Urine Yellow (Yellow); Glucose, Dipstick 1000 mg/dl (Normal); Leukocyte Esterase-Dipstick Negative /ul (Negative); Nitrite-Dipstick Negative (Negative); Occult Blood-Urine Negative /ul (Negative); Protein-Dipstick Negative (Negative); Specific Gravity, Urine 1.015 (1.002-1.030); Urine Bilirubin Dipstick Negative (Negative); Urine Clarity Clear (Clear); Urine Urobilinogen Normal (Normal); Urine pH 6.5 (5.0 - 8.0)
[2021-06-30 12:50] LABS: Ketone-Dipstick 150 mg/dl (Negative)
[2021-06-30 13:36] VITALS: BP 117/79; PULSE 72; RESP 17; O2SAT 96
== END 2021-06-30 13:37 | disposition home or self-care (01) ==
PROVIDERS: Emergency Provider Emergency Medicine; PCP Nurse Practitioner Family; Visit Provider Emergency Medicine
DX: K92.0 Hematemesis (principal); E10.65 Type 1 diabetes mellitus with hyperglycemia; E10.40 Type 1 diabetes mellitus with diabetic neuropathy, unspecified; Z79.4 Long term (current) use of insulin; F17.210 Nicotine dependence, cigarettes, uncomplicated; Z86.73 Personal history of transient ischemic attack (TIA), and cerebral infarction without residual deficits
CPT/HCPCS: 80048; 80076; 81001; 82009; 83690; 85025; 85610; 85730; 96361; 96374; 96375; 99285; A4216; J2405